=== PATIENT | female | born 1990 | race Caucasian/White ===

== ENCOUNTER 2021-10-09 17:34 | Emergency (ER) | payer MEDICAID, SELFPAY ==
[2021-10-09 17:58] VITALS: BP 133/79; PULSE 77; RESP 17; TEMP 37; O2SAT 98; BMI 32.7
--- NOTE | 2021-10-09 18:22 | ED.FEMALEGU ---
HPI - Female Genitourinary General Chief complaint: Urogenital-Female Stated complaint: kidney pain Time Seen by Provider: 10/09/21 18:22 Source: patient Mode of arrival: ambulatory Limitations: no limitations History of Present Illness HPI Narrative: 31-year-old female who presents emergency department for evaluation of bilateral flank pain, dysuria and urgency. The patient states she has had the symptoms for approximately 1 week. She points to both flank areas when asked to localize her pain. She states the pain is a constant, dull ache is if someone punched her in the kidneys. She states that the pain is 6/10 at its worst. She does have a burning sensation when she urinates. She states that she urinates then feels that she has to urinate again. She states that she is only urinating small amounts. She denied fever, chills, chest pain, shortness of breath. She states she had some nausea and with intermittent vomiting. The patient states she gets frequent urinary tract infections. She states that she had a urinary tract infection approximately 1 month prior and was on 2 separate antibiotics. She believes that the last antibiotic that she received was Keflex. She states that she is sexually active. She last had intercourse yesterday and she states that it was painful. She has not noticed any vaginal discharge. Related Data Previous Rx's Medication Instructions Recorded doxycycline hyclate 100 mg tablet 100 mg PO Q12H 14 Days #28 tab 10/09/21 metronidazole 500 mg tablet 500 mg PO BID 14 Days #28 tab 10/09/21 Allergies Allergy/AdvReac Type Severity Reaction Status Date / Time Sulfa (Sulfonamide Allergy Hives Verified 10/09/21 18:04 Antibiotics) Review of Systems Review of Systems: Yes all other systems are reviewed and are negative FOR[facility] LAT[facility] Past Medical History FOR[facility], [facility] Narrative: Past medical history: None. Past surgical history: Cholecystectomy, in 2009. Social history: She smokes 1/2 pack of cigarettes per day times 20 years. She occasionally drinks alcohol. She denies drug use. Medical History (Updated 10/09/21 @ 20:42 by Benigno Combs MD) No known health problems Social History Social History Advance Directives: No Advance Directives Information Provided: No Patient : No Physical Exam Vital Signs: Vital Signs: Last Vital Signs Temp 98.6 F 10/09/21 17:58 Pulse 77 10/09/21 17:58 Resp 17 10/09/21 17:58 BP 133/79 10/09/21 17:58 Pulse Ox 98 10/09/21 17:58 BMI result Body Mass Index 32.7 Const: General: cooperative and no acute distress Orientation/consciousness: oriented to person and oriented to place Limitations: no limitations HEENT: Head: Yes normal to inspection, Yes normocephalic and Yes atraumatic Ears: external ears normal General nose exam: Normal external nose present Face and sinus: Yes normal facial exam Mouth: Normal oral and palatal mucosa present Throat: Yes posterior oropharynx normal Eyes: General: appearance normal, both eyes and all related structures Pupils: Equal, round and reactive pupils present Neck: Neck: Yes normal visual inspection, Yes no lymphadenopathy, Yes trachea midline and Yes supple Chest: Chest palpation & inspection: normal inspection of the chest and normal palpation of entire chest wall Resp: Effort & Inspection: normal respiratory effort and able to speak in complete sentences Auscultation: clear to auscultation bilaterally Cardio: Rate: regular rate Rhythm: regular rhythm Heart sounds: S1 normal heart sound present, S2 normal heart sound present and no murmurs GI: Inspection: Yes normal to inspection Palpation (GI): Soft to palpation, Tenderness to palpation present (GI) suprapubicly (Moderate) and no guarding Auscultation: normal bowel sounds : General: Yes CVA tenderness bilateral ([id number]) Back/Spine/Pelvis: Back: CVA tenderness Skin: General skin exam: no rashes or lesions noted Neuro: General: oriented to person and oriented to place Cranial nerves: Yes CN's II-XII intact bilaterally and Yes Equal, round and reactive pupils present Cognition (Neuro): normal cognition Motor exam (neuro): 5/5 motor strength present throughout Extrem: General: Yes normal to inspection Psych: Appearance: grossly normal Speech and movement: Normal speech and movement present Affect: normal affect Attitude: cooperative Thought process: Normal thought process present Thought content: Normal thought content present Course Course Course Narrative: 31-year-old female who presents emergency department for evaluation of bilateral flank pain x1 week, dysuria and urgency times several days. The patient is sexually active and last had intercourse 1 day prior. She denies any vaginal discharge. Vital signs were normal. The patient had moderate suprapubic tenderness and mild to moderate bilateral CVA tenderness. Urinalysis, urine test and urine GC chlamydia have been ordered. 2037: Urine test was negative. Urinalysis revealed 1+ protein, 2+ blood, positive nitrates. Urinalysis revealed 5-9 RBCs, 0 WBCs 1 +bacteria. Given these results I do not think patient has your tract infection. I discussed cervicitis and PID with the patient, at this time, patient does not want a pelvic exam. I did discuss empiric treatment and the patient agreed. The patient was given ceftriaxone with lidocaine 500 mg IM. She was given a prescription for doxycycline 100 mg twice a day for 14 days and metronidazole 500 mg twice a day for 10 days. She was given printed and verbal instructions and discharged home. MDM - Female Genitourinary Lab Data Labs: Lab Results 10/09/21 10/09/21 Range/Units 19:55 19:55 Urine Color YELLOW Urine Appearance CLEAR Urine pH 6.5 (5.0-8.0) Ur Specific [place] 1.015 (1.005-1.025) Urine Protein 1+ H (NEG-TRACE) MG/DL Urine Glucose (UA) NEG (NEG) MG/DL Urine Ketones NEG (NEG) MG/DL Urine Blood 2+ H (NEG) Urine Nitrite POS H (NEG) Ur Leukocyte Esterase NEG (NEG) Urine RBC 5-9 H (0) /HPF Urine WBC 0 (0-4) /HPF Ur Squamous Epith Cells 1+ /LPF Urine Bacteria 1+ /LPF Urine Test NEGATIVE (NEGATIVE) Discharge Plan Discharge Clinical Impression: Acute pelvic inflammatory disease Patient Disposition: Home, Self-Care Additional Instructions: Pelvic inflammatory disease instructions: Your presentation is concerning for possible pelvic inflammatory disease (PID). Approximately 30% of the time, pelvic inflammatory disease is caused by sexually transmitted diseases such as Trichomonas, gonorrhea or chlamydia. Approximately 70% of the time, pelvic inflammatory disease is caused by abnormal bacteria (anaerobic bacteria) in your vagina that can cause an infection Medications You received ceftriaxone 500 mg intramuscularly here in the emergency department Take doxycycline 100 mg, 1 pill twice a day for 14 days. Take metronidazole 500 mg, 1 pill twice a day for 14 days. These 3 antibiotics treat sexually transmitted diseases such as gonorrhea, chlamydia and Trichomonas as well as anaerobic bacteria that can cause pelvic inflammatory disease. Take ibuprofen 200 mg pills, 3 pills every 6 hours as needed for pain. Take Tylenol (acetaminophen) 500 mg pills, 2 pills every 4 to 6 hours as needed for pain. Follow-Up Follow-up with your gynecology in 10-14 days. Pending laboratory tests: The doctor that follows up will need to review the following results with you: Gonorrhea and chlamydia (urine test) You can also check these results on the patient portal. If your gonorrhea or chlamydia tests are positive then your sexual partners will need to be treated. If these tests are positive then you should also be tested as an outpatient for syphilis and HIV disease, these are not tests that we do here in the emergency department. Return precautions: Please return to the emergency department if your symptoms get worse if your pain does not go away in 48 hours or if you develop any symptoms that are concerning to you. Prescriptions: New metronidazole 500 mg tablet 500 mg PO BID 14 Days Qty: 28 0RF doxycycline hyclate 100 mg tablet 100 mg PO Q12H 14 Days Qty: 28 0RF
[2021-10-09 20:02] LABS: Appearance Urine CLEAR; Color Urine YELLOW; Glucose Urine UA NEG (NEG); Leukocyte Esterase Urine NEG (NEG); Nitrite Urine POS (NEG); PH 6.5 (5.0-8.0); Specific Gravity - Urine 1.015 (1.005-1.025); UACC Culture Trigger YES; Urine Blood 2+ (NEG); Urine Ketones NEG (NEG); Urine Protein 1+ MG/DL (NEG-TRACE)
[2021-10-09 20:04] LABS: UPreg QC Valid YES; Urine Pregnancy NEGATIVE (NEGATIVE)
[2021-10-09 20:11] LABS: Bacteria Urine 1+ /LPF; Squamous Epithelial Cell Urine 1+ /LPF; WBC Urine 0 /HPF (0-4)
[2021-10-09] MEDS: cefTRIAXone sodium 500 MG VIAL IM (21:04)
[2021-10-10 06:58] LABS: CT PCR NOT DETECTED (Not Detect.); NG PCR NOT DETECTED (Not Detect.)
== END 2021-10-09 21:11 | disposition home or self-care (01) ==
PROVIDERS: Emergency Provider Emergency Medicine Emergency Medical Services; PCP Family Medicine
DX: N73.9 Female pelvic inflammatory disease, unspecified (principal); R30.0 Dysuria; R39.15 Urgency of urination; Z79.899 Other long term (current) drug therapy
CPT/HCPCS: 81001; 81003; 81025; 87086; 87088; 87186; 87491; 87591; 96372; 99283; 99284; J0696

== ENCOUNTER 2023-01-22 08:39 | Emergency (ER) | payer MEDICAID, SELFPAY ==
--- NOTE | ~2023-01-22 | MR_ITS ---
EXAMINATION: MR CERVICAL SPINE WITHOUT AND WITH CONTRAST CLINICAL INFORMATION: Neck pain and fever. History of intravenous drug abuse. COMPARISON: Cervical spine CT scan 01/22/2023. TECHNIQUE: Multiplanar MR imaging of the cervical spine was performed without contrast. The patient was unable to tolerate the examination and it was terminated prematurely. FINDINGS: The patient was unable to tolerate the examination and it was terminated prematurely. Only a sagittal T1 and T2 sequences were obtained. The T1 sequence is heavily degraded by patient motion and is therefore nondiagnostic. Alignment is grossly maintained in the sagittal dimension. Vertebral heights are preserved. Intervertebral disc height and signal intensity is maintained at all levels. Grossly no spinal canal compromise. No cord compression or abnormal intramedullary signal changes. The cervicomedullary junction is normal. Limited visualization of the posterior fossa reveals no abnormal finding. MR/MR cervical spine wo/w con IMPRESSION: Limited incomplete examination. Grossly no identifiable epidural fluid collection. No spinal canal compromise or cord compression. No abnormal intramedullary signal changes.
--- NOTE | ~2023-01-22 | CT_ITS ---
EXAMINATION: CT HEAD WITHOUT CONTRAST CLINICAL INFORMATION: Fever and headache, history of IVDA. COMPARISON: None available. TECHNIQUE: Contiguous axial imaging was performed from the skull base to vertex without intravenous administration of contrast. Coronal and sagittal reformatted images were obtained. This CT examination was performed using dose optimization techniques as appropriate, variously including the following: *Automated exposure control *Adjustment of mA and/or kV according to patient size (this includes techniques or standardized protocols for targeted exams where dose is matched to indication/reason for exam; i.e. extremities or head) *Use of iterative reconstruction technique DLP: 706 mGy-cm FINDINGS: The cortical sulci are normal. The lateral ventricles are symmetrical. The third and fourth ventricles are in their normal midline position. The basilar and prepontine cisterns are unremarkable. There is no acute intra or extracerebral abnormality. There is no mass effect or midline shift. Sections through the bony calvarium are unremarkable. The paranasal sinuses are clear. The bony orbits and orbital contents are unremarkable. CT/CT head/brain wo IV con IMPRESSION: No acute intracranial pathology.
--- NOTE | ~2023-01-22 | CT_ITS ---
EXAMINATION: CT CERVICAL SPINE WITHOUT CONTRAST CLINICAL INFORMATION: Neck pain. COMPARISON: None available. TECHNIQUE: Multiple axial images of the cervical spine were obtained without the administration of intravenous contrast. Coronal and sagittal reformatted images were obtained. This CT examination was performed using dose optimization techniques as appropriate, variously including the following: *Automated exposure control *Adjustment of mA and/or kV according to patient size (this includes techniques or standardized protocols for targeted exams where dose is matched to indication/reason for exam; i.e. extremities or head) *Use of iterative reconstruction technique DLP: 393.90 mGy-cm FINDINGS: There is straightening of the normal cervical lordosis with normal spinal alignment. The vertebral bodies are intact. Mild degenerative disc disease is seen from C6-7 to T2-T3 with disc space narrowing and marginal osteophyte formation. The odontoid process is intact. The neural foramina are patent. The facet joints are unremarkable. The spinous and transverse processes are intact. The cervical soft tissues are unremarkable. There is no lymphadenopathy. The thyroid gland is unremarkable. The lung apices show a 0.8 cm nodule posteriorly in the left apex (image 296, series 5). CT/CT cervical spine wo IV con IMPRESSION: 1. Straightening of the normal cervical lordosis may be secondary to positioning and/or muscle spasm. Note 2. Mild degenerative disc disease from C6-7 the T2-T3. 3. 0.8 cm left apical pulmonary nodules nonspecific. Given the patient's history of IVDA, further evaluation with a dedicated chest CT scan is recommended to assess the remainder of the chest.
--- NOTE | ~2023-01-22 | XR_ITS ---
EXAMINATION: XR CHEST CLINICAL INFORMATION: Fever, shortness of breath, altered mental status. COMPARISON: None available. TECHNIQUE: Frontal view of the chest was obtained. FINDINGS: No significant abnormality is noted involving the heart, lungs, mediastinum, bony thorax or soft tissues. XR/XR chest 1V IMPRESSION: No acute cardiopulmonary process.
[2023-01-22 08:49] VITALS: BP 110/79; BP 132/76; PULSE 112; PULSE 87; RESP 18; TEMP 38.2; O2SAT 100; O2SAT 99; BMI 33.4
--- NOTE | 2023-01-22 08:54 | PC.NURSE ---
Patient arrived from home reporting fevers, vomiting, and nausea, and neck pain x 8 days. Reports about 6 hours ago she started having 10/10 back pain. Reports snorting heroin around 2-3am. Reports regular iv heroin use. Reports poor po intake and appetite. States had diarrhea yesterday but prior to that was constipated x 5 days. Reports hallucinations, unable to turn neck to the sides without pain. temp 100. 3 provider aware.
[2023-01-22] MEDS: Acetaminophen 325 MG TABLET 975 MG PO (09:10)
--- NOTE | 2023-01-22 10:08 | ED.GENADULT ---
HPI - General Adult General Chief complaint: General Medical Stated complaint: Fever (103) x 8 days, neck/back pain per EMS Time Seen by Provider: 01/22/23 09:53 Source: patient and EMS Mode of arrival: EMS Limitations: other (Poor historian) History of Present Illness HPI narrative: 33-year-old female history of pelvic inflammatory disease, current IV drug abuser last used a few hours ago presenting to the emergency department complaints of 8 days of severe headache, neck pain and severe midline lower back pain she tells me she has been febrile for the past 3 days T-max a 103.0 degrees. She reports pain is 10/10. She reports her spine hurts a lot. She also reports her head hurts and her neck hurts, worse with movement and better at rest. Patient also reports that this morning she feels like she was hallucinating this is when her fever was very high. Patient denies alcohol abuse. Denies tobacco. Patient reports fevers, chills, fatigue, malaise, myalgias. Denies chest pain, shortness of breath, nausea, vomiting, abdominal pain. Related Data Previous Rx's Medication Instructions Recorded doxycycline hyclate 100 mg tablet 100 mg PO Q12H 14 days #28 tabs 10/09/21 metronidazole 500 mg tablet 500 mg PO BID 14 days #28 tabs 10/09/21 nitrofurantoin 100 mg PO BID 7 days #14 caps 10/15/21 monohydrate/macrocrystals 100 mg capsule (Macrobid) cephalexin 500 mg tablet 500 mg PO Q6H 10 days #40 tabs 01/22/23 doxycycline hyclate 100 mg capsule 100 mg PO BID 10 days #20 caps 01/22/23 Allergies Allergy/AdvReac Type Severity Reaction Status Date / Time Sulfa (Sulfonamide Allergy Hives Verified 10/09/21 18:04 Antibiotics) Review of Systems Review of Systems: Constitutional : No Weight loss, + Fever, + Chills, + Fatigue, + Malaise ENT/Mouth : No sore throat, No Rhinorrhea Eyes: No Eye Pain, No Swelling, No Redness Cardiovascular : No Chest Pain, No SOB, No Dyspnea on Exertion, No Orthopnea, No Edema, No Palpitations Respiratory : No Cough, No Sputum, No Wheezing Gastrointestinal : No Nausea, No Vomiting, No Diarrhea, No Constipation, No abdominal Pain, No Hematochezia, No Melena Genitourinary : No Dysuria, No Urinary Frequency, No Hematuria, Musculoskeletal : No joint pain, No Myalgias, No Joint Swelling, + spine pain Skin : No Skin Lesions, No rash Neuro : No Weakness, No Numbness, No Dizziness, + Headache Psych : No Anxiety/Panic, No Depression All other systems reviewed and are negative Yes all other systems are reviewed and are negative [facility] Past Medical History Attestation statement: The following information was validated with the patient. Source: old records reviewed and nursing notes reviewed Medical History No known health problems Social History Social History Alcohol intake: former Smoked in Last 30 Days: Yes Use of substances other than those prescribed or required for medical reasons: Yes Substance Use Type: Heroin Last Used Substance: Hours (ago) Advance Directives: No Advance Directives Information Provided: No Physical Exam ED Vital Signs: Vital Signs - 24 hr 01/22/23 08:49 01/22/23 10:21 01/22/23 10:55 Temperature 100.8 F H 98.6 F 98.8 F Pulse Rate 87 101 H Respiratory Rate 18 20 Blood Pressure 110/79 107/71 Pulse Oximetry 100 100 Oxygen Delivery Method Room Air Room Air 01/22/23 13:35 01/22/23 13:47 Temperature 98.6 F Pulse Rate 70 Respiratory Rate 18 Blood Pressure 103/54 L Pulse Oximetry Oxygen Delivery Method BMI result Body Mass Index 33.4 vss Appearance: Alert.? Oriented X3.? No acute distress.? Patient warm to the touch. Head: Normocephalic, atraumatic, no step-offs or deformities Eyes: Pupils equal, round and reactive to light.? ENT: Pharynx normal.? Neck: Normal inspection.?+ positive Kernig and Brudzinski. Midline cervical spine tenderness C1-C7 throughout. With associated paraspinous muscle spasms. CVS: Rapid rate normal rhythm likely sinus tachycardia..? Pulses normal.? Respiratory: No respiratory distress.? Breath sounds normal.? Abdomen: Soft and nontender.? Skin: Skin warm and dry.? Normal skin color.? Normal skin turgor.? Extremities: No lower extremity edema.? No calf ttp. 5/5 strength to bilateral upper and lower extremities Back: + midline tenderness to lower lumbar and sacral region, full range of motion, no CVA tenderness bilaterally Neuro: Oriented X 3.? No motor deficit.? No sensory deficit. CN 2-12 intact Course Reevaluation(s) Reevaluation #1: Patient is febrile upon review of vital signs, difficult time obtaining labs an IV secondary to patient being to have stick despite this I am calling a sepsis alert at this time as infection is suspected. Blood cultures, lactic acid have been ordered and are pending, 30 cc/kilos bolus. An I ordered empiric vancomycin and Zosyn. Time: 10:10 Reevaluation #2: Patient's CBC with no leukocytosis, normocytic anemia is noted, no previous labs to compare with, patient noted to have leukopenia platelet count of 89, unclear if this is an patient's history patient unclear. Patient does have a neutrophil predominance 84.3. ESR noted to be markedly elevated 51. Sodium 134, potassium 2.7, IV potassium ordered, repeat CMP to be done. Patient is also noted to have a Mag of 1.5 will also give magnesium. Patient's CRP noted to be 21.78. Received a call from Radiology stating that they could only do 1 scan, to prioritize, I believe cervical MRI would be most valuable due to point tenderness being predominantly in the cervical spine. I explained that there is no time to do thoracic, lumbar MRI although my attending fell as though this would also be warranted. My attending aware of this. When patient was taken down to MRI, not cooperative with the exam states she can not Breeze, does not want the exam any more. Also not cooperative with lumbar puncture will give pain medicine and reassess. Time: 13:06 Reevaluation #3: Patient continues to adamantly refuse MRI, refusing lumbar puncture does not want be admitted states she wants antibiotics for home and she is going to leave and she just wants to sleep at home and feel better. I explained to patient this is not how this works I explained to her she can be hospitalized for up to a few days if not weeks due to her potential meningitis, continues to refuse further intervention including lumbar puncture, imaging, hospital admission, further monitoring and testing as needed. I explained to patient meningitis can be deadly she verbalizes understanding and states she does not care. Patient would like to go home at this time. Adamant that she would not stay. Multiple witnesses at the bedside include Cyndi STEELE and Mary VARGAS. Patient is not up for negotiation she tells me and she just needs to go home. At this time patient will be leaving against medical advice, I did go over risks of leaving and patient tells me she does not care risks include worsening condition, infection, . Working diagnosis of meningitis versus aseptic meningitis and possible epidural abscess patient aware of this and states she does not care and would like to leave. At time patient left alert and oriented x4, able to make her own decisions. Time: 13:53 Medications Administered Discontinued Medications Generic Name Dose Route Start Last Admin Trade Name Thomas PRN Reason Stop Dose Admin Acetaminophen 975 mg 01/22/23 08:55 01/22/23 09:10 Acetaminophen 325 Mg Tablet PO 01/22/23 08:56 975 mg ONCE ONE Administration Haloperidol 5 mg 01/22/23 10:14 01/22/23 11:10 Haloperidol 5 Mg Tablet PO 01/22/23 10:15 5 mg ONCE ONE Administration Hydromorphone HCl 1 mg 01/22/23 13:02 01/22/23 13:24 Hydromorphone Hcl 1 Mg/Ml Syringe IVPUSH 01/22/23 13:03 1 mg ONCE ONE Administration Protocol Vancomycin HCl 2,000 mg in 500 mls @ 250 mls/hr 01/22/23 10:07 01/22/23 11:11 Vancomycin/Ns IV 01/22/23 12:06 250 mls/hr ONCE ONE Administration Piperacillin Sod/Tazobactam 50 mls @ 100 mls/hr 01/22/23 10:07 01/22/23 11:51 Sod 3.375 gm/ Sodium Chloride IV 01/22/23 10:36 Infused ONCE ONE Infusion Sodium Chloride 2,565 mls @ 2,565 mls/hr 01/22/23 10:10 01/22/23 10:23 Ns 30 ml/kg infuse over 1 hr (2565 ml) 01/22/23 11:09 2,565 mls/hr IV Administration .Q1H STA Potassium Chloride 10 meq in 100 mls @ 100 mls/hr 01/22/23 10:45 01/22/23 13:16 Potassium Chloride/H20 IV 01/22/23 12:44 100 mls/hr Q1H DARIUSZ Administration Ketorolac Tromethamine 30 mg 01/22/23 10:08 01/22/23 10:14 Ketorolac Tromethamine 15 Mg/Ml Vial IVPUSH 01/22/23 10:09 30 mg ONCE ONE Administration Morphine Sulfate 4 mg 01/22/23 10:08 01/22/23 10:14 Morphine Sulfate 4 Mg/Ml Cartridge IVPUSH 01/22/23 10:09 4 mg ONCE ONE Administration Protocol Medical Decision Making Medical Decision Making [facility] Narrative: 0845 33-year-old female presents with severe neck pain, lower back pain, in the midline, headache and high fevers for the past 3 days however symptoms present for the past 8 days. Patient history of IV drug abuse Physical exam significant for neck with normal inspection.?+ positive Kernig and Brudzinski. Midline cervical spine tenderness C1-C7 throughout. With associated paraspinous muscle spasms. Patient also noted to have midline tenderness to lower lumbar and sacral region. No overlying skin changes. Regular rate normal rhythm likely sinus tachycardia. Lungs clear I do have some suspicion for encephalitis versus meningitis versus epidural abscess. Unlikely cauda equina. Will rule out electrolyte abnormalities. Other differentials include viral illness. Unlikely that this is intracranial hemorrhage, stroke, posterior stroke, pseudotumor cerebri. Plan at this time labs, imaging, urine, CT of head. Will also order an MRI of cervical spine, thoracic and lumbar spine this is discussed with my attending who agrees base of history, physical exam and patient presentation. Patient a very difficult stick, unable to get labs or an IV per nursing staff. Will continue to try. Differential Diagnosis Differential Diagnoses: The differential diagnosis associated with the presentation includes I do have some suspicion for encephalitis versus meningitis versus epidural abscess. Unlikely cauda equina. Will rule out electrolyte abnormalities. Other differentials include viral illness. Unlikely that this is intracranial hemorrhage, stroke, posterior stroke, pseudotumor cerebri. Admission/Observation Consideration of admission/observation: Escalation of care including admission/observation considered Likely ICU admission Consult Healthcare Provider Management of the patient was discussed with: [employer] Lab Data [facility] Lab Attestation statement: I reviewed the patient's lab results. 01/22/23 10:02 01/22/23 10:02 Labs: Lab Results 01/22/23 01/22/23 01/22/23 Range/Units 10:02 10:02 10:02 WBC 8.8 (4.8-10.8) X10*3/uL RBC 4.00 L (4.20-5.50) X10*6/uL Hgb 11.1 L (12.0-16.0) g/dl Hct 32.0 L (37.0-47.0) % MCV 80.0 (80.0-98.0) fL MCH 27.8 (27.0-33.0) pg MCHC 34.7 (31.0-35.0) g/dl RDW 14.2 (11.0-16.0) % Plt Count 89 L (160-400) X10*3/uL MPV 10.9 (9.4-12.3) fL Immature Gran % (Auto) 1.0 H (0.0-0.4) % Neut % (Auto) 84.3 H (45-73) % Lymph % (Auto) 8.7 L (20-40) % Holmes % (Auto) 5.6 (2-11) % Eos % (Auto) 0.1 (0-4) % Baso % (Auto) 0.3 (0-2) % Lymph # (Auto) 0.8 L (1.2-4.9) X10*3/uL Holmes # (Auto) 0.5 (0.1-1.2) X10*3/uL Eos # (Auto) 0.0 (0.0-0.4) X10*3/uL Baso # (Auto) 0.0 (0.0-0.2) X10*3/uL Abs Immat Gran (auto) 0.09 H (0.00-0.03) X10*3/uL Absolute Neuts (auto) 7.4 (2.0-8.3) x10*3/uL Absolute Nucleated RBC 0.000 (0.0-0.012) X10*3/uL Nucleated RBC % (auto) 0.0 (0.0-0.2) /100WBC ESR (0-20) MM/HR Sodium 134 L (135-145) mmol/L Potassium 2.7 L (3.3-5.1) mmol/L Chloride 99 (96-108) mmol/L Carbon Dioxide 24 (22-29) mmol/L Anion Gap 14 (12-20) BUN 7 L (9-16) mg/dL Creatinine 0.71 (0.5-1.4) mg/dL Estim Creat Clear Calc 117.8 Estimated GFR > 60 Random Glucose 145 H (60-115) mg/dL Lactic Acid 2.0 (0.5-2.0) mmol/L Calcium 9.7 (8.4-10.2) mg/dL Magnesium 1.5 L (1.6-2.6) mg/dL Total Bilirubin 0.9 (0.0-1.0) mg/dL AST 19 (5-31) U/L ALT 12 (0-31) U/L Alkaline Phosphatase 118 H (39-117) U/L Total Creatine Kinase 13 L (26-140) U/L C-Reactive Protein 21.78 H (< or = 0.50) mg/dL Total Protein 6.5 (6.5-8.0) g/dL Albumin 2.8 L (3.5-5.0) g/dL Urine Color Urine Appearance Urine pH (5.0-9.0) Ur Specific [place] (1.005-1.025) Urine Protein (Neg-Trace) mg/dL Urine Glucose (UA) (Negative) mg/dL Urine Ketones (Negative) mg/dL Urine Blood (Negative) Urine Nitrite (Negative) Ur Leukocyte Esterase (Negative) Urine RBC (0-2) /HPF Urine WBC (0-5) /HPF Ur Squamous Epith Cells (0-2) /HPF Urine Bacteria (None Seen) Hyaline Casts (0-2) /LPF COVID-19 (DARÍO) (Negative) COVID-19 Clin Com 01/22/23 01/22/23 01/22/23 Range/Units 10:02 10:28 10:28 WBC (4.8-10.8) X10*3/uL RBC (4.20-5.50) X10*6/uL Hgb (12.0-16.0) g/dl Hct (37.0-47.0) % MCV (80.0-98.0) fL MCH (27.0-33.0) pg MCHC (31.0-35.0) g/dl RDW (11.0-16.0) % Plt Count (160-400) X10*3/uL MPV (9.4-12.3) fL Immature Gran % (Auto) (0.0-0.4) % Neut % (Auto) (45-73) % Lymph % (Auto) (20-40) % Holmes % (Auto) (2-11) % Eos % (Auto) (0-4) % Baso % (Auto) (0-2) % Lymph # (Auto) (1.2-4.9) X10*3/uL Holmes # (Auto) (0.1-1.2) X10*3/uL Eos # (Auto) (0.0-0.4) X10*3/uL Baso # (Auto) (0.0-0.2) X10*3/uL Abs Immat Gran (auto) (0.00-0.03) X10*3/uL Absolute Neuts (auto) (2.0-8.3) x10*3/uL Absolute Nucleated RBC (0.0-0.012) X10*3/uL Nucleated RBC % (auto) (0.0-0.2) /100WBC ESR 51 H (0-20) MM/HR Sodium (135-145) mmol/L Potassium (3.3-5.1) mmol/L Chloride (96-108) mmol/L Carbon Dioxide (22-29) mmol/L Anion Gap (12-20) BUN (9-16) mg/dL Creatinine (0.5-1.4) mg/dL Estim Creat Clear Calc Estimated GFR Random Glucose (60-115) mg/dL Lactic Acid (0.5-2.0) mmol/L Calcium (8.4-10.2) mg/dL Magnesium (1.6-2.6) mg/dL Total Bilirubin (0.0-1.0) mg/dL AST (5-31) U/L ALT (0-31) U/L Alkaline Phosphatase (39-117) U/L Total Creatine Kinase (26-140) U/L C-Reactive Protein (< or = 0.50) mg/dL Total Protein (6.5-8.0) g/dL Albumin (3.5-5.0) g/dL Urine Color Yellow Urine Appearance Clear Urine pH 6.0 (5.0-9.0) Ur Specific [place] <= 1.005 (1.005-1.025) Urine Protein Negative (Neg-Trace) mg/dL Urine Glucose (UA) Negative (Negative) mg/dL Urine Ketones Negative (Negative) mg/dL Urine Blood Moderate (2+) H (Negative) Urine Nitrite Negative (Negative) Ur Leukocyte Esterase Trace H (Negative) Urine RBC 0-2 (0-2) /HPF Urine WBC 0-5 (0-5) /HPF Ur Squamous Epith Cells 11-20 (0-2) /HPF Urine Bacteria 3+ (None Seen) Hyaline Casts 0-2 (0-2) /LPF COVID-19 (DARÍO) Negative (Negative) COVID-19 Clin Com See Note Independent Interpretation I performed an independent interpretation of an: EKG, Plain X-Ray and CT Scan Radiology Impression Discussion of test interpretation with radiology: I have reviewed the radiologist's reading. Chronic Conditions Patient?s care impacted by: Other (IV drug abuse) Core Measures AMI core measures followed: Yes Measure exclusions: not indicated Critical Care Time Critical Care Time Critical Care Time: Yes Total Critical Care Time: 90 Attestation: I attest to this time spent taking care of the patient, obtaining history, physical, reviewing labs, imaging, speaking to my attending, speaking to specialist. Discharge Plan Discharge Clinical Impression: UTI (urinary tract infection), Fever, Headache, Neck pain, Left against medical advice Patient Disposition: Left Against Medical Advice Instructions: Urinary Tract Infection in Women (ED), Fever in Adults (ED), Acute Headache (ED), Against Medical Advice (ED), Acute Neck Pain (ED) Additional Instructions: Take your medications as prescribed. If you were prescribed antibiotics today, it is important that you take your medication to their entirety, do not skip any doses, do not finish them early. Follow-up with your primary care provider this week. Return to the emergency department with new or worsening symptoms. Such as fevers, chills, chest pain, shortness of breath, nausea, vomiting, dizziness, headache, vision changes, lethargy In case of emergency call 911 You sign no against medical advice this means you could when you leave this facility. Return if you change your mind Prescriptions: New doxycycline hyclate 100 mg capsule 100 mg PO BID 10 Days Qty: 20 0RF cephalexin 500 mg tablet 500 mg PO Q6H 10 Days Qty: 40 0RF No Action metronidazole 500 mg tablet 500 mg PO BID 14 Days Qty: 28 0RF doxycycline hyclate 100 mg tablet 100 mg PO Q12H 14 Days Qty: 28 0RF nitrofurantoin monohyd/m-cryst [Macrobid] 100 mg capsule 100 mg PO BID 7 Days Qty: 14 0RF Rx Instructions: must administer with a meal/food Referrals: Sharif Rascon MD [Primary Care Provider] - 2 days Stand Alone Forms: Against Medical Advice
[2023-01-22 10:12] LABS: MANUAL DIFF FLAG NO
[2023-01-22 10:14] LABS: Basophils Percent Auto 0.3 % (0-2); Eosinophils Percent Auto 0.1 % (0-4); Hemoglobin 11.1 g/dl (12.0-16.0); Imm Gran Abs Auto 0.09 X10*3/uL (0.00-0.03); Lymphocytes Absolute Auto 0.8 X10*3/uL (1.2-4.9); Lymphocytes Percent Auto 8.7 % (20-40); Mean Corpuscular HGB Conc 34.7 g/dl (31.0-35.0); Mean Corpuscular Hemoglobin 27.8 pg (27.0-33.0); Monocytes Absolute Auto 0.5 X10*3/uL (0.1-1.2); Monocytes Percent Auto 5.6 % (2-11); Neutrophils Absolute Auto 7.4 x10*3/uL (2.0-8.3); Neutrophils Percent Auto 84.3 % (45-73); Red Cell Distribution Width 14.2 % (11.0-16.0); White Blood Count 8.8 X10*3/uL (4.8-10.8)
[2023-01-22] MEDS: Ketorolac Tromethamine 15 MG/ML VIAL 30 MG IVPUSH (10:14)
[2023-01-22] MEDS: Morphine Sulfate 4 MG/ML CARTRIDGE IVPUSH (10:14)
[2023-01-22 10:21] VITALS: TEMP 37
[2023-01-22] MEDS: Piperacillin Sodium/Tazobactam 3.375 GM in 0.9 % Sodium Chloride 50 ML IV (10:21)
[2023-01-22 10:29] LABS: Alanine Aminotransferase 12 U/L (0-31); Albumin Level 2.8 g/dL (3.5-5.0); Alkaline Phosphatase 118 U/L (39-117); Anion Gap 14 (12-20); Aspartate Amino Transferase 19 U/L (5-31); Bilirubin Total 0.9 mg/dL (0.0-1.0); Blood Urea Nitrogen 7 mg/dL (9-16); C Reactive Protein 21.78 mg/dL (< or = 0.50); Calcium 9.7 mg/dL (8.4-10.2); Carbon Dioxide 24 mmol/L (22-29); Chloride 99 mmol/L (96-108); Creatinine Clr Calc Pharmacy 117.8; Estimated Glomerular Filt Rate > 60; Glucose Random 145 mg/dL (60-115); Magnesium 1.5 mg/dL (1.6-2.6); Potassium 2.7 mmol/L (3.3-5.1); Sodium 134 mmol/L (135-145); Total Protein 6.5 g/dL (6.5-8.0)
--- NOTE | 2023-01-22 10:32 | ECG_ITS ---
Test Reason : hypok Blood Pressure : / mmHG Vent. Rate : 098 BPM Atrial Rate : 098 BPM P-R Int : 152 ms QRS Dur : 106 ms QT Int : 414 ms P-R-T Axes : 069 067 041 degrees QTc Int : 528 ms Normal sinus rhythm Nonspecific ST and T wave abnormality Prolonged QT Abnormal ECG No previous ECGs available Referred By: Davon Damian Electronically Signed By:KIP NIETO
[2023-01-22 10:36] LABS: Appearance Urine Clear; Color Urine Yellow; Glucose Urine UA Negative (Negative); Leukocyte Esterase Urine Trace (Negative); Nitrite Urine Negative (Negative); Specific Gravity - Urine <= 1.005 (1.005-1.025); UMIC TRIGGER UACC YES; Urine Blood Moderate (2+) (Negative); Urine Ketones Negative (Negative); Urine Protein Negative (Neg-Trace)
[2023-01-22 10:49] LABS: COVID-19 Test Negative (Negative); IDNOW Serial# 55D5AD1C
--- NOTE | 2023-01-22 10:50 | PC.NURSE ---
x 3 nurses attempted to start iv without success. IV started in top of left foot per provider. IV fluids running per order, patient accidentally removed IV in top.
[2023-01-22 10:53] LABS: Erythrocyte Sedimentation Rate 51 MM/HR (0-20); Mean Platelet Volume 10.9 fL (9.4-12.3); Platelet Count 89 X10*3/uL (160-400)
[2023-01-22 10:55] VITALS: BP 107/71; PULSE 101; RESP 20; TEMP 37.1; O2SAT 100
[2023-01-22 10:58] LABS: Bacteria Urine 3+ (None Seen); Hyaline Casts Urine 0-2 /LPF (0-2); RBC Urine 0-2 /HPF (0-2); WBC Urine 0-5 /HPF (0-5)
[2023-01-22] MEDS: HaloperidoL 5 MG TABLET PO (11:10)
[2023-01-22] MEDS: Potassium Chloride/H20 10 MEQ/100 ML PIGGYBACK 100 MEQ IV ×2 (11:11→13:16)
[2023-01-22] MEDS: vancomycin/NS 2,000 MG/500 ML PLAST..BAG 250 MG IV (11:11)
--- NOTE | 2023-01-22 11:26 | PC.NURSE ---
IV re-started in left forearm via ultrasound guidance. IV fluids and abt resumed per order
--- NOTE | 2023-01-22 11:54 | PC.NURSE ---
Patient off to mri at this time. 1 bag of fluids completed, 600mls output of clear yellow urine
[2023-01-22] MEDS: HYDROmorphone HCl 1 MG/ML SYRINGE IVPUSH (13:24)
--- NOTE | 2023-01-22 13:33 | PC.NURSE ---
Patient reporting that she does a lot of fentanyl everyday and feels as if she is withdrawing. Provider notified, iv pain med given per order. Patient assisted to use bedpain. Bed linen and hospital attire change per patients request. IV fluids, abt, and K running per order.
[2023-01-22 13:35] VITALS: TEMP 37
[2023-01-22 13:47] VITALS: BP 103/54; PULSE 70; RESP 18
--- NOTE | 2023-01-22 13:56 | PC.NURSE ---
Patient rang call pradhan stating IV was burning. Explained that K does cause can cause a burning sensation. IV assessed with no s/s of infiltration noted. Provider into room who also explained that K can burn upon infusion. Patient stating to stop K. Patient stating to provider that she wants to go home. Provider reviewed risks up to and including if patient leaves ama. Patient states she is aware and still wants to leave. Patient stating she also does not want MG run that she will stay until vanco is complete but then she is leaving.
--- NOTE | 2023-01-22 14:06 | PHA.MEDREC ---
Pharmacy Consult ? Medication Reconciliation Pharmacy has completed the medication reconciliation.
--- NOTE | 2023-01-22 14:20 | PC.NURSE ---
Discharge instructions reviewed wth patient who verbalized understanding. patient educated on abt1s and when to return to er.
--- NOTE | 2023-01-22 21:40 | ED_ITS ---
HPI - General Adult General Chief complaint: General Medical Stated complaint: Fever (103) x 8 days, neck/back pain per EMS Time Seen by Provider: 01/22/23 09:53 Source: patient and EMS Mode of arrival: EMS Limitations: other (Poor historian) Related Data Previous Rx's Medication Instructions Recorded cephalexin 500 mg tablet 500 mg PO Q6H 10 days #40 tabs 01/22/23 doxycycline hyclate 100 mg capsule 100 mg PO BID 10 days #20 caps 01/22/23 Allergies Allergy/AdvReac Type Severity Reaction Status Date / Time Sulfa (Sulfonamide Allergy Hives Verified 10/09/21 18:04 Antibiotics) [facility] Past Medical History Medical History No known health problems Social History Social History Alcohol intake: former Smoked in Last 30 Days: Yes Use of substances other than those prescribed or required for medical reasons: Yes Substance Use Type: Heroin Last Used Substance: Hours (ago) Advance Directives: No Advance Directives Information Provided: No Physical Exam ED Vital Signs: Vital Signs - 24 hr 01/22/23 08:49 01/22/23 10:21 01/22/23 10:55 Temperature 100.8 F H 98.6 F 98.8 F Pulse Rate 87 101 H Respiratory Rate 18 20 Blood Pressure 110/79 107/71 Pulse Oximetry 100 100 Oxygen Delivery Method Room Air Room Air 01/22/23 13:35 01/22/23 13:47 Temperature 98.6 F Pulse Rate 70 Respiratory Rate 18 Blood Pressure 103/54 L Pulse Oximetry Oxygen Delivery Method BMI result Body Mass Index 33.4 Course Reevaluation(s) Reevaluation #1: Received call from the lab that the patient has positive blood cultures and 2/2 bottles. After reviewing the patient's chart and seeing that she is complaining of fever times a days and there was high concern for meningitis, I called the patient. I was able to speak with her and explained the risks of bacteremia, sepsis. She reports that she feels ?okay. ? I advised her to return to the emergency department immediately or call 911. She reports ?I will try to find a ride 1st. ? Time: 21:40 Medications Administered Discontinued Medications Generic Name Dose Route Start Last Admin Trade Name Thomas PRN Reason Stop Dose Admin Acetaminophen 975 mg 01/22/23 08:55 01/22/23 09:10 Acetaminophen 325 Mg Tablet PO 01/22/23 08:56 975 mg ONCE ONE Administration Haloperidol 5 mg 01/22/23 10:14 01/22/23 11:10 Haloperidol 5 Mg Tablet PO 01/22/23 10:15 5 mg ONCE ONE Administration Hydromorphone HCl 1 mg 01/22/23 13:02 01/22/23 13:24 Hydromorphone Hcl 1 Mg/Ml Syringe IVPUSH 01/22/23 13:03 1 mg ONCE ONE Administration Protocol Vancomycin HCl 2,000 mg in 500 mls @ 250 mls/hr 01/22/23 10:07 01/22/23 11:11 Vancomycin/Ns IV 01/22/23 12:06 250 mls/hr ONCE ONE Administration Piperacillin Sod/Tazobactam 50 mls @ 100 mls/hr 01/22/23 10:07 01/22/23 11:51 Sod 3.375 gm/ Sodium Chloride IV 01/22/23 10:36 Infused ONCE ONE Infusion Sodium Chloride 2,565 mls @ 2,565 mls/hr 01/22/23 10:10 01/22/23 10:23 Ns 30 ml/kg infuse over 1 hr (2565 ml) 01/22/23 11:09 2,565 mls/hr IV Administration .Q1H STA Potassium Chloride 10 meq in 100 mls @ 100 mls/hr 01/22/23 10:45 01/22/23 13:55 Potassium Chloride/H20 IV 01/22/23 12:44 0 mls/hr Q1H DARIUSZ Infusion Magnesium Sulfate 2 gm in 50 mls @ 25 mls/hr 01/22/23 13:04 01/22/23 13:55 Magnesium Sulfate/H2o IV 01/22/23 15:03 Not Given ONCE ONE Ketorolac Tromethamine 30 mg 01/22/23 10:08 01/22/23 10:14 Ketorolac Tromethamine 15 Mg/Ml Vial IVPUSH 01/22/23 10:09 30 mg ONCE ONE Administration Morphine Sulfate 4 mg 01/22/23 10:08 01/22/23 10:14 Morphine Sulfate 4 Mg/Ml Cartridge IVPUSH 01/22/23 10:09 4 mg ONCE ONE Administration Protocol Medical Decision Making Lab Data 01/22/23 10:02 01/22/23 10:02 Labs: Lab Results 01/22/23 01/22/23 01/22/23 Range/Units 10:02 10:02 10:02 WBC 8.8 (4.8-10.8) X10*3/uL RBC 4.00 L (4.20-5.50) X10*6/uL Hgb 11.1 L (12.0-16.0) g/dl Hct 32.0 L (37.0-47.0) % MCV 80.0 (80.0-98.0) fL MCH 27.8 (27.0-33.0) pg MCHC 34.7 (31.0-35.0) g/dl RDW 14.2 (11.0-16.0) % Plt Count 89 L (160-400) X10*3/uL MPV 10.9 (9.4-12.3) fL Immature Gran % (Auto) 1.0 H (0.0-0.4) % Neut % (Auto) 84.3 H (45-73) % Lymph % (Auto) 8.7 L (20-40) % [place] % (Auto) 5.6 (2-11) % Eos % (Auto) 0.1 (0-4) % Baso % (Auto) 0.3 (0-2) % Lymph # (Auto) 0.8 L (1.2-4.9) X10*3/uL [place] # (Auto) 0.5 (0.1-1.2) X10*3/uL Eos # (Auto) 0.0 (0.0-0.4) X10*3/uL Baso # (Auto) 0.0 (0.0-0.2) X10*3/uL Abs Immat Gran (auto) 0.09 H (0.00-0.03) X10*3/uL Absolute Neuts (auto) 7.4 (2.0-8.3) x10*3/uL Absolute Nucleated RBC 0.000 (0.0-0.012) X10*3/uL Nucleated RBC % (auto) 0.0 (0.0-0.2) /100WBC ESR (0-20) MM/HR Sodium 134 L (135-145) mmol/L Potassium 2.7 L (3.3-5.1) mmol/L Chloride 99 (96-108) mmol/L Carbon Dioxide 24 (22-29) mmol/L Anion Gap 14 (12-20) BUN 7 L (9-16) mg/dL Creatinine 0.71 (0.5-1.4) mg/dL Estim Creat Clear Calc 117.8 Estimated GFR > 60 Random Glucose 145 H (60-115) mg/dL Lactic Acid 2.0 (0.5-2.0) mmol/L Calcium 9.7 (8.4-10.2) mg/dL Magnesium 1.5 L (1.6-2.6) mg/dL Total Bilirubin 0.9 (0.0-1.0) mg/dL AST 19 (5-31) U/L ALT 12 (0-31) U/L Alkaline Phosphatase 118 H (39-117) U/L Total Creatine Kinase 13 L (26-140) U/L C-Reactive Protein 21.78 H (< or = 0.50) mg/dL Total Protein 6.5 (6.5-8.0) g/dL Albumin 2.8 L (3.5-5.0) g/dL Urine Color Urine Appearance Urine pH (5.0-9.0) Ur Specific [place] (1.005-1.025) Urine Protein (Neg-Trace) mg/dL Urine Glucose (UA) (Negative) mg/dL Urine Ketones (Negative) mg/dL Urine Blood (Negative) Urine Nitrite (Negative) Ur Leukocyte Esterase (Negative) Urine RBC (0-2) /HPF Urine WBC (0-5) /HPF Ur Squamous Epith Cells (0-2) /HPF Urine Bacteria (None Seen) Hyaline Casts (0-2) /LPF COVID-19 (DARÍO) (Negative) COVID-19 Clin Com 01/22/23 01/22/23 01/22/23 Range/Units 10:02 10:28 10:28 WBC (4.8-10.8) X10*3/uL RBC (4.20-5.50) X10*6/uL Hgb (12.0-16.0) g/dl Hct (37.0-47.0) % MCV (80.0-98.0) fL MCH (27.0-33.0) pg MCHC (31.0-35.0) g/dl RDW (11.0-16.0) % Plt Count (160-400) X10*3/uL MPV (9.4-12.3) fL Immature Gran % (Auto) (0.0-0.4) % Neut % (Auto) (45-73) % Lymph % (Auto) (20-40) % [place] % (Auto) (2-11) % Eos % (Auto) (0-4) % Baso % (Auto) (0-2) % Lymph # (Auto) (1.2-4.9) X10*3/uL [place] # (Auto) (0.1-1.2) X10*3/uL Eos # (Auto) (0.0-0.4) X10*3/uL Baso # (Auto) (0.0-0.2) X10*3/uL Abs Immat Gran (auto) (0.00-0.03) X10*3/uL Absolute Neuts (auto) (2.0-8.3) x10*3/uL Absolute Nucleated RBC (0.0-0.012) X10*3/uL Nucleated RBC % (auto) (0.0-0.2) /100WBC ESR 51 H (0-20) MM/HR Sodium (135-145) mmol/L Potassium (3.3-5.1) mmol/L Chloride (96-108) mmol/L Carbon Dioxide (22-29) mmol/L Anion Gap (12-20) BUN (9-16) mg/dL Creatinine (0.5-1.4) mg/dL Estim Creat Clear Calc Estimated GFR Random Glucose (60-115) mg/dL Lactic Acid (0.5-2.0) mmol/L Calcium (8.4-10.2) mg/dL Magnesium (1.6-2.6) mg/dL Total Bilirubin (0.0-1.0) mg/dL AST (5-31) U/L ALT (0-31) U/L Alkaline Phosphatase (39-117) U/L Total Creatine Kinase (26-140) U/L C-Reactive Protein (< or = 0.50) mg/dL Total Protein (6.5-8.0) g/dL Albumin (3.5-5.0) g/dL Urine Color Yellow Urine Appearance Clear Urine pH 6.0 (5.0-9.0) Ur Specific [place] <= 1.005 (1.005-1.025) Urine Protein Negative (Neg-Trace) mg/dL Urine Glucose (UA) Negative (Negative) mg/dL Urine Ketones Negative (Negative) mg/dL Urine Blood Moderate (2+) H (Negative) Urine Nitrite Negative (Negative) Ur Leukocyte Esterase Trace H (Negative) Urine RBC 0-2 (0-2) /HPF Urine WBC 0-5 (0-5) /HPF Ur Squamous Epith Cells 11-20 (0-2) /HPF Urine Bacteria 3+ (None Seen) Hyaline Casts 0-2 (0-2) /LPF COVID-19 (DARÍO) Negative (Negative) COVID-19 Clin Com See Note Discharge Plan Discharge Clinical Impression: UTI (urinary tract infection), Fever, Headache, Neck pain, Left against medical advice Patient Disposition: Left Against Medical Advice Instructions: Urinary Tract Infection in Women (ED), Fever in Adults (ED), Ac apache Headache (ED), Against Medical Advice (ED), Acute Neck Pain (ED) Additional Instructions: Take your medications as prescribed. If you were prescribed antibiotics today, it is important that you take your medication to their entirety, do not skip any doses, do not finish them early. Follow-up with your primary care provider this week. Return to the emergency department with new or worsening symptoms. Such as fevers, chills, chest pain, shortness of breath, nausea, vomiting, dizziness, headache, vision changes, lethargy In case of emergency call 911 You sign no against medical advice this means you could when you leave this facility. Return if you change your mind Prescriptions: New doxycycline hyclate 100 mg capsule 100 mg PO BID 10 Days Qty: 20 0RF cephalexin 500 mg tablet 500 mg PO Q6H 10 Days Qty: 40 0RF Referrals: Sharif Rascon MD [Primary Care Provider] - 2 days Stand Alone Forms: Against Medical Advice Interventions: ED Discharge Assessment Last Done: 01/22/23 14:20 Discharge Date/Time: 01/22/23 15:09
== END 2023-01-22 15:09 | disposition left against medical advice (07) ==
PROVIDERS: Physician Assistant; Emergency Provider Emergency Medicine Emergency Medical Services; PCP Family Medicine
DX: N39.0 Urinary tract infection, site not specified (principal); B95.61 Methicillin susceptible Staphylococcus aureus infection as the cause of diseases classified elsewhere; R50.9 Fever, unspecified; R51.9 Headache, unspecified; M54.2 Cervicalgia; Z20.822 Contact with and (suspected) exposure to COVID-19
CPT/HCPCS: 36415; 70450; 71045; 72125; 72156; 80053; 81001; 82550; 83605; 83735; 85025; 85652; 86140; 87040; 87077; 87186; 87205; 87635; 93005; 96365; 96366; 96367; 96375; 99285; J1170; J1885; J2270; J2543; J3370

== ENCOUNTER 2023-09-01 19:15 | Inpatient (IN) | payer MEDICAID, SELFPAY ==
--- NOTE | ~2023-09-01 | XR_ITS ---
EXAMINATION: BILATERAL ANKLES CLINICAL INFORMATION: Bilateral ankle pain and swelling COMPARISON: None available. TECHNIQUE: 2 views each ankle FINDINGS: There is mild soft tissue swelling at the ankles bilaterally, right greater than left ankle mortise is stable bilaterally. No ankle joint effusions are seen. No fractures or dislocations. XR/XR ankle LT 2V IMPRESSION: Mild soft tissue swelling without fracture.
--- NOTE | ~2023-09-01 | XR_ITS ---
EXAMINATION: XR CHEST CLINICAL INFORMATION: Central venous catheter placement COMPARISON: Chest 01/22/2023. TECHNIQUE: Frontal view of the chest was obtained. FINDINGS: No significant abnormality is noted involving the heart, lungs, mediastinum, bony thorax or soft tissues. There is a right central venous catheter with its tip in distal SVC. XR/XR chest 1V IMPRESSION: Unremarkable chest examination.
--- NOTE | ~2023-09-01 | XR_ITS ---
EXAMINATION: BILATERAL ANKLES CLINICAL INFORMATION: Bilateral ankle pain and swelling COMPARISON: None available. TECHNIQUE: 2 views each ankle FINDINGS: There is mild soft tissue swelling at the ankles bilaterally, right greater than left ankle mortise is stable bilaterally. No ankle joint effusions are seen. No fractures or dislocations. XR/XR ankle RT 2V IMPRESSION: Mild soft tissue swelling without fracture.
[2023-09-01 19:26] VITALS: BP 137/75; PULSE 101; RESP 16; TEMP 36.8; O2SAT 98
--- NOTE | 2023-09-01 19:38 | ECG_ITS ---
Test Reason : ALTERED MENTAL STATE Blood Pressure : / mmHG Vent. Rate : 096 BPM Atrial Rate : 096 BPM P-R Int : 154 ms QRS Dur : 104 ms QT Int : 398 ms P-R-T Axes : 062 016 -01 degrees QTc Int : 502 ms Normal sinus rhythm Inferior infarct , age undetermined Abnormal ECG When compared with ECG of 22-JAN-2023 10:57, Inferior infarct is now Present Nonspecific T wave abnormality, worse in Inferior leads Nonspecific T wave abnormality no longer evident in Anterior leads Referred By: Bob Ortega Electronically Signed By:Nathaniel Morgan
--- NOTE | 2023-09-01 19:38 | ED_ITS ---
HPI - General Adult General Chief complaint: Skin/Abscess/Foreign Body Stated complaint: rash on leg and abd Time Seen by Provider: 09/01/23 19:38 History of Present Illness HPI narrative: The patient is a 33-year-old female who describes herself has generally healthy although she admits to being an IV drug user. She has on no prescription medications and does not identify any medical problems other than her IV drug use. The patient says that she started to feel unwell about 5 or 6 days ago. She had a fever for a few days with her highest temperature being 103. Today she thought that her fever was better but today she developed red lesions on her legs that have been rapidly looking worse and she has developed swelling of both of her lower extremities. The redness and the swelling seemed to progress rapidly and she came to the emergency department. She last used injection IV drugs this morning. On reviewing her previous [facility] records she was seen here in October of 2021 for pelvic inflammatory disease. She was seen here in January of 2023 for a fever. She left the emergency room against medical advice that time and blood cultures came back positive for staph aureus. Related Data Allergies Allergy/AdvReac Type Severity Reaction Status Date / Time Sulfa (Sulfonamide Allergy Hives Verified 10/09/21 18:04 Antibiotics) Review of Systems 2 Review of Systems: Yes all other systems are reviewed and are negative [facility] Past Medical History Medical History Active intravenous drug use No known health problems Social History Social History Alcohol intake: former Smoked in Last 30 Days: No Substance Use Type: Heroin Advance Directives: No Advance Directives Information Provided: No Patient : No Physical Exam ED Vital Signs: Vital Signs - 24 hr 09/01/23 19:26 09/01/23 21:46 Temperature 98.3 F 97.8 F Pulse Rate 101 H 93 Respiratory Rate 16 18 Blood Pressure 137/75 126/88 Pulse Oximetry 98 95 Oxygen Delivery Method Room Air Room Air BMI result Body Mass Index 31.4 Const Other: The patient is awake and alert. Her mental status is normal. She has obviously swollen lower extremities with a dramatic rash on both lower extremities but from the waist up she does not appear obviously ill. HENMT Other: Face is symmetrical. Mucous membranes moist. Pharynx unremarkable. Eyes Other: Pupils are round equal, conjunctivae clear, extraocular movements intact Neck Other: No nuchal rigidity. No cervical adenopathy. Resp Effort & Inspection: normal respiratory effort Auscultation: clear to auscultation bilaterally Cardio Other: The patient has a regular rate and rhythm. There is a 2/6 systolic murmur. GI Other: Abdomen is soft and nontender Back/Spine/Pelvis Other: The appearance of the back is unremarkable. No significant rash on the back. Skin Other: Patient has edema of both lower legs for most of the legs and feet. There is a nonblanching erythematous rash characterized by macules and large areas of confluence erythema. The entire area of the involved skin is tender. Neuro Other: The patient is awake and alert. She has a normal mental status. Cranial nerves are intact. She moves her extremities symmetrically. She is grossly neurologically intact with a nontoxic demeanor. Extrem Other: Significant macular and confluence tender rash on both lower extremities. Medications Administered Generic Name Dose Route Start Last Admin Trade Name Freq PRN Reason Stop Dose Admin Acetaminophen 650 mg 09/02/23 00:06 09/02/23 10:03 Acetaminophen 325 Mg Tablet PO 650 mg Q6H PRN Administration Pain, Mild (Pain Scale 1-3) Enoxaparin Sodium 40 mg 09/02/23 09:00 09/02/23 09:50 Enoxaparin Sodium 40 Mg/0.4 Ml Syringe SUBCUT 40 mg Q24H DARIUSZ Administration Vancomycin HCl 1,250 mg/ 250 mls @ 166.667 mls/hr 09/02/23 10:00 09/02/23 12:00 Sodium Chloride IV Infused Q12H DARIUSZ Infusion Loratadine 10 mg 09/02/23 09:00 09/02/23 09:50 Loratadine 10 Mg Tablet PO 10 mg DAILY DARIUSZ Administration Morphine Sulfate 15 mg 09/02/23 00:06 09/02/23 10:03 Morphine Sulfate Immed Release 15 Mg Tablet PO 15 mg Q4H PRN Administration Pain, Severe (Pain Scale 7-10) Nicotine Polacrilex 2 mg 09/02/23 00:53 09/02/23 00:59 Nicotine Polacrilex 2 Mg Gum BUCCAL 2 mg Q2H PRN Administration Nicotine Cravings Sodium Chloride 3 ml 09/02/23 08:00 09/02/23 09:51 0.9 % Sodium Chloride Flush 3 Ml Syringe IVFLUSH 3 ml QSHIFT DARIUSZ Administration Triamcinolone Acetonide 1 appl 09/02/23 00:55 09/02/23 12:20 Triamcinolone Acet 0.1 % Cream 15 Gm Tube TOPICAL 1 appl BID [facility] Administration Protocol Discontinued Medications Generic Name Dose Route Start Last Admin Trade Name Thomas PRN Reason Stop Dose Admin Acetaminophen 975 mg 09/01/23 20:25 09/01/23 21:30 Acetaminophen 325 Mg Tablet PO 09/01/23 20:26 975 mg ONCE ONE Administration Diphenhydramine HCl 25 mg 09/02/23 00:54 09/02/23 06:26 Diphenhydramine Hcl 50 Mg/Ml Vial IVPUSH 09/02/23 00:55 25 mg ONCE ONE Administration Hydromorphone HCl 1 mg 09/01/23 21:08 09/01/23 21:29 Hydromorphone Hcl 1 Mg/Ml Syringe IM 09/01/23 21:09 1 mg ONCE ONE Administration Protocol Hydromorphone HCl 1 mg 09/01/23 22:27 09/01/23 22:58 Hydromorphone Hcl 1 Mg/Ml Syringe IVPUSH 09/01/23 22:28 1 mg ONCE ONE Administration Protocol Piperacillin Sod/Tazobactam 100 mls @ 200 mls/hr 09/01/23 19:40 09/01/23 22:21 Sod 4.5 gm/ Sodium Chloride IV 09/01/23 20:09 Infused ONCE ONE Infusion Vancomycin HCl 2,000 mg in 500 mls @ 250 mls/hr 09/01/23 19:41 09/01/23 22:19 Vancomycin/Ns IV 09/01/23 21:40 250 mls/hr ONCE ONE Administration Sodium Chloride 250 mls @ 999 mls/hr 09/02/23 00:30 09/02/23 01:05 Ns IV 09/02/23 00:45 Infused .Q16M DARIUSZ Infusion Ketorolac Tromethamine 30 mg 09/01/23 22:29 09/01/23 22:58 Ketorolac Tromethamine 30 Mg/Ml Vial IM 09/01/23 22:30 30 mg ONCE ONE Administration Lidocaine HCl 20 ml 09/02/23 09:34 09/02/23 11:10 Lidocaine Hcl 1 % 20 Ml Vial SUBCUT 09/02/23 09:35 Not Given ONCE ONE Lorazepam 1 mg 09/01/23 21:08 09/01/23 21:29 Lorazepam 2 Mg/Ml Vial IM 09/01/23 21:09 1 mg ONCE ONE Administration Methadone HCl 20 mg 09/02/23 11:24 09/02/23 12:21 Methadone Hcl 20 Mg/2 Ml Oral.Conc PO 09/02/23 11:25 20 mg ONCE ONE Administration Potassium Chloride 40 meq 09/02/23 00:27 09/02/23 00:47 Potassium Chloride Packet 20 Meq Packet PO 09/02/23 00:28 40 meq ONCE ONE Administration Procedures Central Line Placement Right IJ: Time Out Performed: Yes Patient Placed on Monitor/Pulse Ox: Yes MD Prep: mask, gown and gloves Central Line Prep: Chlorhexidine scrub and sterile drapes applied Local Anesthetic: lidocaine 1% Amount of anesthesia used (mL): 4 Ultrasound Used for Placement: Yes Central Line Lumen Inserted: triple Post Procedure: sutured in place, good blood return, all ports aspirated, flushed, capped and sterile dressing applied Post Procedure X-Ray: tip of catheter in good position and no pneumothorax seen Patient Tolerated Procedure: well and no complications Complications: none Medical Decision Making Medical Decision Making [facility] Narrative: The patient is a 33-year-old woman who was an IV drug user who reports having had a febrile illness for about a week. The fever seems to have resolved and she has now developed over the last 24 hours a dramatic swelling and rash of both lower extremities. The appearance of the swelling and rashes very remarkable but the patient is demeanor otherwise is nontoxic. I believe she has a cardiac murmur. I was most concerned about some kind of an infectious inflammatory etiology of the symptoms in her legs. She was seen promptly in labs were ordered promptly as were antibiotics but we had a great deal of difficulty obtaining phlebotomy and IV access. Nursing tried for peripheral IVs with ultrasound. I attempted a left external jugular IV without success. Ultimately because of lack of other access I consented the patient for a right internal jugular triple-lumen catheter from which we were able to obtain phlebotomy and administer antibiotics. Patient was also given pain medications as she seemed extremely uncomfortable. I was surprised at the results of the patient's blood work. She does not have a significant white count or left shift. She has not acidotic in any way. Her platelet count, INR, and PTT are unremarkable. The patient's lactate is normal. However her CRP and sed rate are significantly elevated. Given the results of the patient's laboratory evaluation I think it is unlikely that the patient is septic. Nevertheless the patient was covered with Zosyn and vancomycin. The patient reports taking doxycycline intermittently during the last week perhaps this is some kind of hypersensitivity reaction. In any event the patient's findings in her legs is very impressive and I think she will need to be hospitalized for further evaluation. She was admitted to the hospitalist service.. Lab Data 09/02/23 07:31 09/02/23 07:31 Labs: Lab Results 09/01/23 09/01/23 09/01/23 Range/Units 21:39 21:41 21:53 WBC 7.6 (4.8-10.8) X10*3/uL RBC 3.93 L (4.20-5.50) X10*6/uL Hgb 10.2 L (12.0-16.0) g/dl Hct 31.1 L (37.0-47.0) % MCV 79.1 L (80.0-98.0) fL MCH 26.0 L (27.0-33.0) pg MCHC 32.8 (31.0-35.0) g/dl RDW 15.4 (11.0-16.0) % Plt Count 284 D (160-400) X10*3/uL MPV 9.0 L (9.4-12.3) fL Immature Gran % (Auto) 1.2 H (0.0-0.4) % Neut % (Auto) 63.8 (45-73) % Lymph % (Auto) 24.3 (20-40) % Perry % (Auto) 9.3 (2-11) % Eos % (Auto) 1.0 (0-4) % Baso % (Auto) 0.4 (0-2) % Lymph # (Auto) 1.9 (1.2-4.9) X10*3/uL Perry # (Auto) 0.7 (0.1-1.2) X10*3/uL Eos # (Auto) 0.1 (0.0-0.4) X10*3/uL Baso # (Auto) 0.0 (0.0-0.2) X10*3/uL Abs Immat Gran (auto) 0.09 H (0.00-0.03) X10*3/uL Absolute Neuts (auto) 4.9 (2.0-8.3) x10*3/uL Absolute Nucleated RBC 0.000 (0.0-0.012) X10*3/uL Nucleated RBC % (auto) 0.0 (0.0-0.2) /100WBC ESR 92 H (0-20) MM/HR PT 16.8 H (11.1-13.3) SEC INR 1.4 H (0.9-1.1) APTT 25.4 L (26.0-36.8) SEC VBG pH 7.49 H (7.32-7.43) VBG pCO2 40 mmHg VBG pO2 46 mmHg VBG HCO3 31 H (22-26) mmol/L VBG O2 Saturation 74.0 % VBG Base Excess 7.4 mmol/L Sodium 134 L (135-145) mmol/L Potassium 3.0 L (3.3-5.1) mmol/L Chloride 97 (96-108) mmol/L Carbon Dioxide 28 (22-29) mmol/L Anion Gap 12 (12-20) BUN 10 (9-16) mg/dL Creatinine 0.64 (0.5-1.4) mg/dL Estim Creat Clear Calc 141.1 Estimated GFR > 60 Random Glucose 108 (60-115) mg/dL Lactic Acid 0.9 (0.5-2.0) mmol/L Calcium 9.4 (8.4-10.2) mg/dL Magnesium 2.0 (1.6-2.6) mg/dL Total Bilirubin 0.7 (0.0-1.0) mg/dL Direct Bilirubin 0.3 (0.0-0.5) mg/dL AST 26 (5-31) U/L ALT 12 (0-31) U/L Alkaline Phosphatase 107 (39-117) U/L Total Creatine Kinase 78 (26-140) U/L Troponin I High Sens < 2.7 (<3.5-17.0) ng/L C-Reactive Protein 17.56 H (< or = 0.50) mg/dL B-Natriuretic Peptide 22 (<100) pg/mL Total Protein 7.8 (6.5-8.0) g/dL Albumin 3.2 L (3.5-5.0) g/dL Beta HCG, Quant < 2 mIU/mL Ethyl Alcohol < 10 mg/dL Influenza Type A (PCR) NEGATIVE (Negative) Influenza Type B (PCR) NEGATIVE (Negative) RSV RNA Qual (PCR) NEGATIVE (Negative) SARS-CoV-2 RNA (RT-PCR) NEGATIVE (Negative) Critical Care Time Critical Care Time Critical Care Time: Yes Total Critical Care Time: 60 Attestation: The patient was critically ill with a high probability of imminent or life- threatening deterioration. ?I spent greater than 30 minutes of discontinuous time evaluating the patient, delivering critical care at the bedside, discussing evaluating data with consultants. ?Critical care time does not include time spent performing separately billable procedures or teaching. ?Time spent performing critical care with 60 minutes. Discharge Plan Discharge Clinical Impression: Rash and nonspecific skin eruption, Cardiac murmur, Active intravenous drug use Patient Disposition: Admitted As Inpatient
[2023-09-01 19:39] VITALS: BP 196/96; PULSE 115; O2SAT 98; BMI 31.4
[2023-09-01] MEDS: LORazepam 2 MG/ML VIAL 1 MG IM (21:29)
[2023-09-01] MEDS: HYDROmorphone HCl 1 MG/ML SYRINGE IM (21:29)
[2023-09-01] MEDS: Acetaminophen 325 MG TABLET 975 MG PO (21:30)
[2023-09-01] MEDS: Piperacillin Sodium/Tazobactam 4.5 GM in 0.9 % Sodium Chloride 100 ML IV (21:45)
[2023-09-01 21:46] VITALS: BP 126/88; PULSE 93; RESP 18; TEMP 36.6; O2SAT 95
[2023-09-01 21:57] LABS: MANUAL DIFF FLAG NO
[2023-09-01 21:58] LABS: Basophils Percent Auto 0.4 % (0-2); Eosinophils Absolute Auto 0.1 X10*3/uL (0.0-0.4); Hematocrit 31.1 % (37.0-47.0); Hemoglobin 10.2 g/dl (12.0-16.0); Imm Gran Abs Auto 0.09 X10*3/uL (0.00-0.03); Imm Gran Pct Auto 1.2 % (0.0-0.4); Lymphocytes Absolute Auto 1.9 X10*3/uL (1.2-4.9); Lymphocytes Percent Auto 24.3 % (20-40); Mean Corpuscular HGB Conc 32.8 g/dl (31.0-35.0); Mean Corpuscular Volume 79.1 fL (80.0-98.0); Monocytes Absolute Auto 0.7 X10*3/uL (0.1-1.2); Monocytes Percent Auto 9.3 % (2-11); Neutrophils Absolute Auto 4.9 x10*3/uL (2.0-8.3); Neutrophils Percent Auto 63.8 % (45-73); Platelet Count 284 X10*3/uL (160-400); Red Blood Count 3.93 X10*6/uL (4.20-5.50); Red Cell Distribution Width 15.4 % (11.0-16.0); White Blood Count 7.6 X10*3/uL (4.8-10.8)
[2023-09-01 22:04] LABS: INTERNATIONAL NORM RATIO 1.4 (0.9-1.1); Prothrombin Time 16.8 SEC (11.1-13.3)
[2023-09-01 22:06] LABS: VBG Base Excess 7.4 mmol/L; VBG HCO3 31 mmol/L (22-26); VBG pCO2 40 mmHg; VBG pH 7.49 (7.32-7.43); VBG pO2 46 mmHg
[2023-09-01 22:06] LABS: Partial Thromboplastin Time 25.4 SEC (26.0-36.8)
[2023-09-01 22:07] LABS: Venous Blood Gas Refer to POC result
[2023-09-01 22:12] LABS: Lactic Acid 0.9 mmol/L (0.5-2.0)
[2023-09-01] MEDS: vancomycin/NS 2,000 MG/500 ML PLAST..BAG 250 MG IV (22:19)
[2023-09-01 22:23] LABS: B Type Natriuretic Peptide 22 pg/mL (<100)
[2023-09-01 22:25] LABS: HCG Quantitative < 2 mIU/mL
[2023-09-01 22:26] LABS: Alanine Aminotransferase 12 U/L (0-31); Albumin Level 3.2 g/dL (3.5-5.0); Alkaline Phosphatase 107 U/L (39-117); Anion Gap 12 (12-20); Aspartate Amino Transferase 26 U/L (5-31); Bilirubin Direct 0.3 mg/dL (0.0-0.5); Bilirubin Total 0.7 mg/dL (0.0-1.0); Blood Urea Nitrogen 10 mg/dL (9-16); C Reactive Protein 17.56 mg/dL (< or = 0.50); Calcium 9.4 mg/dL (8.4-10.2); Carbon Dioxide 28 mmol/L (22-29); Chloride 97 mmol/L (96-108); Creatinine Clr Calc Pharmacy 141.1; Estimated Glomerular Filt Rate > 60; Ethanol < 10 mg/dL; Glucose Random 108 mg/dL (60-115); Sodium 134 mmol/L (135-145); Total Protein 7.8 g/dL (6.5-8.0)
[2023-09-01 22:35] LABS: Influenza A PCR NEGATIVE (Negative); Influenza B PCR NEGATIVE (Negative); Resp Syncy Virus RNA Qual PCR NEGATIVE (Negative); SARS COV2 PCR INHOUSE NEGATIVE (Negative)
[2023-09-01 22:40] LABS: Erythrocyte Sedimentation Rate 92 MM/HR (0-20)
[2023-09-01 22:44] LABS: Troponin-I High Sensitivity < 2.7 ng/L (<3.5-17.0)
[2023-09-01] MEDS: HYDROmorphone HCl 1 MG/ML SYRINGE IVPUSH (22:58)
[2023-09-01] MEDS: Ketorolac Tromethamine 30 MG/ML VIAL IM (22:58)
--- NOTE | 2023-09-02 00:08 | PM.IMHP ---
History of Present Illness Date of Service: 09/02/23 Chief Complaint: Fever This is a 33-year-old female with pertinent history of IVDU who presents to the emergency department for evaluation of fever and rash. Patient states she had a fever of about 103 that started about a week prior to presentation. Patient has been taking ibuprofen for it. She continues to be febrile every day. Also has associated headache and intermittent neck stiffness. Patient presents today as she noticed rash in her bilateral lower extremities from or hip to her toes. Also has severe pain and swelling in the lower extremities along with the rash. This started on the day of presentation. No history of similar rash before. Patient states she is unable to ambulate due to pain in her bilateral ankle joints. Endorses pain in bilateral knees and left finger joints. No nausea, vomiting, chest discomfort, palpitations, shortness of breath, changes in urinary bowel habits. No throat ache. Patient last used IV fentanyl on the day of presentation. Patient states she took doxycycline once daily for 4 days prior to coming to the ER today. Patient denies any pertinent medical history and is not on any prescription medications. Of note, patient was seen in January of 2023 for a fever. Blood cultures positive for staph aureus but patient left emergency room AMA In the emergency department, ESR and CRP found to be elevated. Review of Systems Constitutional: Constitutional: Reports chills and Reports fever(s) Cardiovascular: Cardiovascular: Reports no additional cardiovascular complaints Respiratory: Respiratory: Reports no additional respiratory complaints Gastrointestinal: Gastrointestinal: Reports no additional gastrointestinal complaints Genitourinary: Genitourinary: Reports no additional female genitourinary complaints [facility] Medical History Active intravenous drug use No known health problems Pertinent family history: No family history of early CAD Social History Alcohol intake: former Smoked in Last 30 Days: No Substance Use Type: Heroin Advance Directives: No Advance Directives Information Provided: No Patient : No Meds Allergies Allergy/AdvReac Type Severity Reaction Status Date / Time Sulfa (Sulfonamide Allergy Hives Verified 10/09/21 18:04 Antibiotics) Physical Exam Vital Signs and Narrative: Vital Signs: Last Vital Signs Temp 97.8 F 09/01/23 21:46 Pulse 93 09/01/23 21:46 Resp 18 09/01/23 21:46 BP 126/88 09/01/23 21:46 Pulse Ox 95 09/01/23 21:46 O2 Del Method Room Air 09/01/23 21:46 BMI result Body Mass Index 31.4 Middle-aged female lying in bed in no distress Neck supple, no JVD Regular rate and rhythm, S1-S2 heard, murmur present Regular breath sounds bilaterally, no wheezing or crackles appreciated Abdomen soft nontender, no guarding, no rigidity Patient is awake, alert and oriented to self, place, time and person ; no focal motor deficit Psych: Normal mood Skin: Bilateral upper extremities with track prieto ; bilateral lower extremities with swelling and painful rash as pictured below Skin: Other: Results Labs 09/01/23 21:39 09/01/23 21:39 Labs: Laboratory Results - last 24 hr 09/01/23 09/01/23 09/01/23 21:39 21:41 21:53 MCV 79.1 L MCH 26.0 L MCHC 32.8 RDW 15.4 Plt Count 284 D MPV 9.0 L Immature Gran % (Auto) 1.2 H Neut % (Auto) 63.8 Lymph % (Auto) 24.3 Antelope % (Auto) 9.3 Eos % (Auto) 1.0 Baso % (Auto) 0.4 Lymph # (Auto) 1.9 Antelope # (Auto) 0.7 Eos # (Auto) 0.1 Baso # (Auto) 0.0 Abs Immat Gran (auto) 0.09 H Absolute Neuts (auto) 4.9 Absolute Nucleated RBC 0.000 Nucleated RBC % (auto) 0.0 ESR 92 H PT 16.8 H INR 1.4 H APTT 25.4 L VBG pH 7.49 H VBG pCO2 40 VBG pO2 46 VBG HCO3 31 H VBG O2 Saturation 74.0 VBG Base Excess 7.4 Anion Gap 12 Estim Creat Clear Calc 141.1 Estimated GFR > 60 Random Glucose 108 Lactic Acid 0.9 Calcium 9.4 Magnesium 2.0 Total Bilirubin 0.7 Direct Bilirubin 0.3 AST 26 ALT 12 Alkaline Phosphatase 107 Total Creatine Kinase 78 Troponin I High Sens < 2.7 C-Reactive Protein 17.56 H B-Natriuretic Peptide 22 Total Protein 7.8 Albumin 3.2 L Beta HCG, Quant < 2 Ethyl Alcohol < 10 Influenza Type A (PCR) NEGATIVE Influenza Type B (PCR) NEGATIVE RSV RNA Qual (PCR) NEGATIVE SARS-CoV-2 RNA (RT-PCR) NEGATIVE Imaging Radiologist's Impressions: Impressions Chest X-Ray 09/01/23 21:55 IMPRESSION: Unremarkable chest examination. Assessment and Plan (1) Active intravenous drug use: Status: Acute (2) Rash and nonspecific skin eruption: Status: Acute Plan This is a 33-year-old female with pertinent history of IVDU who presents to the emergency department for evaluation of fever and rash. #. Bilateral lower extremity painful rash: ?drug hypersensitivity reaction to doxycycline. Reports she was febrile up to temperature 103 degrees F at home. Can not rule out infectious etiology in a patient with IVDU and previous blood culture with Staph aureus. Empiric IV vancomycin. Symptomatic treatment and monitor. #. Substance use disorder: Consulting Addiction Team. Monitor for withdrawal. UDS pending #. Microcytic anemia: Obtaining iron panel #. Hypokalemia: Repleted DVT prophylaxis: Lovenox Full code Admit as inpatient and will require two night minimum hospital stay for close monitoring of rash in a patient with IVDU, IV antibiotics (as above), which is not possible in a lesser acute setting. Quality Stroke Does the patient have a stroke diagnosis?: No VTE Prior VTE?: No VTE Risk Level:: Medical - moderate - high VTE Device Contraindication: Treatment Not Indicated VTE Drug Contraindication: N/A - Med Ordered
[2023-09-02 00:16] VITALS: BP 105/85; PULSE 91; RESP 18; TEMP 36.5; O2SAT 99
[2023-09-02] MEDS: Potassium Chloride Packet 20 MEQ PACKET 40 MEQ PO (00:47)
[2023-09-02] MEDS: 0.9 % Sodium Chloride 250 ML 999 ML IV (00:49)
[2023-09-02] MEDS: Morphine Sulfate Immed Release 15 MG TABLET PO ×4 (00:59→23:27)
[2023-09-02] MEDS: Nicotine Polacrilex 2 MG GUM BUCCAL (00:59)
[2023-09-02 06:00] VITALS: BP 110/65; PULSE 70; RESP 16; TEMP 37.1; O2SAT 96
[2023-09-02 06:17] LABS: Appearance Urine Clear; Color Urine Yellow; Glucose Urine UA Negative (Negative); Leukocyte Esterase Urine Trace (Negative); Nitrite Urine Negative (Negative); Specific Gravity - Urine 1.025 (1.005-1.025); UMIC TRIGGER UA YES; Urine Blood Large (3+) (Negative); Urine Ketones Negative (Negative); Urine Protein Trace mg/dL (Neg-Trace)
[2023-09-02 06:22] LABS: Bacteria Urine 2+ (None Seen); Granular Casts Urine Present; Hyaline Casts Urine 0-2 /LPF (0-2)
[2023-09-02] MEDS: diphenhydrAMINE HCL 50 MG/ML VIAL 25 MG IVPUSH (06:26)
[2023-09-02 06:42] LABS: Amphetamine Screen Urine Not Detected (Not Detect); Barbiturates, Urine Not Detected (Not Detect); Benzodiazepines Screen Urine Not Detected (Not Detect); Cannabinoid Screen Urine POSITIVE (Not Detect); Cocaine Screen Urine POSITIVE (Not Detect); Fentanyl, urine POSITIVE (Not Detect); Opiate Screen Urine POSITIVE (Not Detect); Phencyclidine Screen Urine Not Detected (Not Detect)
[2023-09-02 07:11] VITALS: BP 123/57; PULSE 74; RESP 14; TEMP 36.4; O2SAT 96
--- NOTE | 2023-09-02 07:13 | PC.NURSE ---
Assumed care of PT at 2315. Downtime from 0100 to 0600. PT medicated as per AUG. Requested KALEB Coyne Tech to complete belonging list- tech did not complete. Notified oncoming rn and tech aware.
[2023-09-02 08:08] LABS: MANUAL DIFF FLAG NO
[2023-09-02 08:24] LABS: Anion Gap 12 (12-20); Blood Urea Nitrogen 13 mg/dL (9-16); Carbon Dioxide 29 mmol/L (22-29); Chloride 101 mmol/L (96-108); Creatinine Clr Calc Pharmacy 110.2; Estimated Glomerular Filt Rate > 60; Glucose Random 103 mg/dL (60-115); Potassium 3.5 mmol/L (3.3-5.1); Sodium 138 mmol/L (135-145)
[2023-09-02 08:27] LABS: Basophils Absolute Auto 0.1 X10*3/uL (0.0-0.2); Basophils Percent Auto 0.6 % (0-2); Eosinophils Absolute Auto 0.1 X10*3/uL (0.0-0.4); Eosinophils Percent Auto 1.2 % (0-4); Hematocrit 29.8 % (37.0-47.0); Hemoglobin 9.5 g/dl (12.0-16.0); Imm Gran Abs Auto 0.16 X10*3/uL (0.00-0.03); Imm Gran Pct Auto 1.6 % (0.0-0.4); Iron 40 mcg/dL (30-160); Lymphocytes Absolute Auto 2.8 X10*3/uL (1.2-4.9); Mean Corpuscular HGB Conc 31.9 g/dl (31.0-35.0); Mean Corpuscular Hemoglobin 25.9 pg (27.0-33.0); Mean Corpuscular Volume 81.2 fL (80.0-98.0); Mean Platelet Volume 9.4 fL (9.4-12.3); Monocytes Absolute Auto 0.9 X10*3/uL (0.1-1.2); Monocytes Percent Auto 8.6 % (2-11); Percent Iron Saturation 24 % (15-50); Platelet Count 290 X10*3/uL (160-400); Red Blood Count 3.67 X10*6/uL (4.20-5.50); Red Cell Distribution Width 15.7 % (11.0-16.0); Total Iron Binding Capacity 167 mcg/dL (228-428); Unsaturated Iron Binding 127 ug/dL
[2023-09-02] MEDS: Loratadine 10 MG TABLET PO (09:50)
[2023-09-02] MEDS: Enoxaparin Sodium 40 MG/0.4 ML SYRINGE SUBCUT (09:50)
[2023-09-02] MEDS: 0.9 % Sodium Chloride Flush 3 ML SYRINGE IVFLUSH ×2 (09:51→16:51)
[2023-09-02] MEDS: vancomycin HCL 1,250 MG in 0.9 % Sodium Chloride 250 ML 166.67 MG IV (09:59)
[2023-09-02] MEDS: Acetaminophen 325 MG TABLET 650 MG PO (10:03)
--- NOTE | 2023-09-02 10:11 | PM.EVENT ---
Event Note Date of Service: 09/02/23 Event Note: Addiction consult placed for patient with IVDU Patient seen in room 16 of ED. Asleep initially, woke to her name. Denied any withdrawal sx, appeared comfortable Advised to request withdrawal medications should sx present--patient agreeable Will follow up later this afternoon or sooner if needed Time Spent With Patient Time: Total time managing care of this patient today ____ minutes.
--- NOTE | 2023-09-02 10:37 | PHA.MEDREC ---
Pharmacy Consult ? Medication Reconciliation Pharmacy has completed the medication reconciliation, pt reported no home medications.
--- NOTE | 2023-09-02 10:55 | PM.CNGS ---
History of Present Illness Consult details Consult date: 09/02/23 Narrative: [age] year old female with known act IV drug abuse, who came to the ER because of fever and a rash. She describes having this diffuse rash on both lower extremities for the past few weeks now. She has had pain on these areas. She admits to continue IV drug abuse. She has admitted because of this maculopapular rash on both lower extremities and I have been asked to do a skin biopsy. Review of Systems Constitutional: Constitutional: Reports chills and Reports fever(s) Cardiovascular: Cardiovascular: Denies chest pain, Denies dyspnea and Denies dyspnea on exertion Respiratory: Respiratory: Denies cough, Denies dyspnea and Denies dyspnea on exertion Gastrointestinal: Gastrointestinal: Denies hematochezia and Denies change in bowel habits Genitourinary: Genitourinary: Denies hematuria Musculoskeletal: Musculoskeletal: Reports back pain, Reports myalgias and Denies limited range of motion Neurologic: Denies focal weakness and Denies convulsions Psychiatric: Psychiatric: Denies depression and Denies mood swings [facility] Past Medical History Medical History Active intravenous drug use No known health problems Social History Social History Alcohol intake: former Smoked in Last 30 Days: No Substance Use Type: Heroin Advance Directives: No Advance Directives Information Provided: No Patient : No Meds Allergies Allergy/AdvReac Type Severity Reaction Status Date / Time Sulfa (Sulfonamide Allergy Hives Verified 10/09/21 18:04 Antibiotics) Active Medications: Current Medications Acetaminophen (Acetaminophen 325 Mg Tablet) 650 mg PO Q6H PRN PRN Reason: Pain, Mild (Pain Scale 1-3) Last Admin: 09/02/23 10:03 Dose: 650 mg Enoxaparin Sodium (Enoxaparin Sodium 40 Mg/0.4 Ml Syringe) 40 mg SUBCUT Q24H [facility] Last Admin: 09/02/23 09:50 Dose: 40 mg Vancomycin HCl 1,250 mg/ (Sodium Chloride) 250 mls @ 166.667 mls/hr IV Q12H [facility] Last Admin: 09/02/23 09:59 Dose: 166.67 mls/hr Loratadine (Loratadine 10 Mg Tablet) 10 mg PO DAILY [facility] Last Admin: 09/02/23 09:50 Dose: 10 mg Melatonin (Melatonin 3 Mg Tablet) 6 mg PO BEDTIME PRN PRN Reason: Insomnia Morphine Sulfate (Morphine Sulfate Immed Release 15 Mg Tablet) 15 mg PO Q4H PRN PRN Reason: Pain, Severe (Pain Scale 7-10) Last Admin: 09/02/23 10:03 Dose: 15 mg Nicotine Polacrilex (Nicotine Polacrilex 2 Mg Gum) 2 mg BUCCAL Q2H PRN PRN Reason: Nicotine Cravings Last Admin: 09/02/23 00:59 Dose: 2 mg Ondansetron HCl (Ondansetron Hcl 4 Mg/2 Ml Vial) 4 mg IVPUSH Q8H PRN PRN Reason: Nausea and Vomiting Pharmacy Consult (Consult Rx Vancomycin Dosing) 1 each MISCELLANE DAILY PRN PRN Reason: Consult order Sodium Chloride (0.9 % Sodium Chloride Flush 3 Ml Syringe) 3 ml IVFLUSH QSHIFT [facility] Last Admin: 09/02/23 09:51 Dose: 3 ml Triamcinolone Acetonide (Triamcinolone Acet 0.1 % Cream 15 Gm Tube) 1 appl TOPICAL BID [facility]; Protocol Last Admin: 09/02/23 06:24 Dose: Not Given Physical Exam Vital Signs: Vital Signs: Last Vital Signs Temp 97.6 F 09/02/23 07:11 Pulse 74 09/02/23 07:11 Resp 14 09/02/23 07:11 BP 123/57 L 09/02/23 07:11 Pulse Ox 96 09/02/23 07:11 O2 Del Method Room Air 09/02/23 07:11 BMI result Body Mass Index 31.4 Const: General: comfortable and no acute distress Orientation/consciousness: patient oriented x3 Neck: Neck: Yes no lymphadenopathy Resp: Auscultation: clear to auscultation bilaterally Cardio: Rhythm: regular rhythm GI: Palpation (GI): Soft to palpation, nontender and no guarding Neuro: General: patient oriented x3 Extrem: Other: Diffuse maculopapular rash on both lower extremities including the feet, no open wound Results Labs 09/02/23 07:31 09/02/23 07:31 Labs: Abnormal lab results 09/01/23 09/01/23 09/02/23 Range/Units 21:39 21:53 02:47 RBC 3.93 L (4.20-5.50) X10*6/uL Hgb 10.2 L (12.0-16.0) g/dl Hct 31.1 L (37.0-47.0) % MCV 79.1 L (80.0-98.0) fL MCH 26.0 L (27.0-33.0) pg MPV 9.0 L (9.4-12.3) fL Immature Gran % (Auto) 1.2 H (0.0-0.4) % Abs Immat Gran (auto) 0.09 H (0.00-0.03) X10*3/uL ESR 92 H (0-20) MM/HR PT 16.8 H (11.1-13.3) SEC INR 1.4 H (0.9-1.1) APTT 25.4 L (26.0-36.8) SEC VBG pH 7.49 H (7.32-7.43) VBG HCO3 31 H (22-26) mmol/L Sodium 134 L (135-145) mmol/L Potassium 3.0 L (3.3-5.1) mmol/L TIBC (228-428) mcg/dL C-Reactive Protein 17.56 H (< or = 0.50) mg/dL Albumin 3.2 L (3.5-5.0) g/dL Urine Blood Large (3+) H (Negative) Ur Leukocyte Esterase Trace H (Negative) Urine RBC 11-20 H (0-2) /HPF Urine WBC 11-20 H (0-5) /HPF Urine Opiates Screen POSITIVE H (Not Detect) Urine Fentanyl Screen POSITIVE H (Not Detect) Urine Cocaine Screen POSITIVE H (Not Detect) U Marijuana (THC) Screen POSITIVE H (Not Detect) 09/02/23 Range/Units 07:31 RBC 3.67 L (4.20-5.50) X10*6/uL Hgb 9.5 L (12.0-16.0) g/dl Hct 29.8 L (37.0-47.0) % MCV (80.0-98.0) fL MCH 25.9 L (27.0-33.0) pg MPV (9.4-12.3) fL Immature Gran % (Auto) 1.6 H (0.0-0.4) % Abs Immat Gran (auto) 0.16 H (0.00-0.03) X10*3/uL ESR (0-20) MM/HR PT (11.1-13.3) SEC INR (0.9-1.1) APTT (26.0-36.8) SEC VBG pH (7.32-7.43) VBG HCO3 (22-26) mmol/L Sodium (135-145) mmol/L Potassium (3.3-5.1) mmol/L TIBC 167 L (228-428) mcg/dL C-Reactive Protein (< or = 0.50) mg/dL Albumin (3.5-5.0) g/dL Urine Blood (Negative) Ur Leukocyte Esterase (Negative) Urine RBC (0-2) /HPF Urine WBC (0-5) /HPF Urine Opiates Screen (Not Detect) Urine Fentanyl Screen (Not Detect) Urine Cocaine Screen (Not Detect) U Marijuana (THC) Screen (Not Detect) Short CBC 09/01/23 09/02/23 Range/Units 21:39 07:31 WBC 7.6 10.0 (4.8-10.8) X10*3/uL Hgb 10.2 L 9.5 L (12.0-16.0) g/dl Hct 31.1 L 29.8 L (37.0-47.0) % Plt Count 284 D 290 (160-400) X10*3/uL BMP 09/01/23 09/02/23 09/02/23 21:39 07:31 07:31 Sodium 134 L 138 Potassium 3.0 L 3.5 Chloride 97 101 Carbon Dioxide 28 29 BUN 10 13 Creatinine 0.64 0.82 Cancelled Calcium 9.4 9.0 Cardiac Enzymes 09/01/23 Range/Units 21:39 Total Creatine Kinase 78 (26-140) U/L Liver Function 09/01/23 Range/Units 21:39 Total Bilirubin 0.7 (0.0-1.0) mg/dL Direct Bilirubin 0.3 (0.0-0.5) mg/dL AST 26 (5-31) U/L ALT 12 (0-31) U/L Alkaline Phosphatase 107 (39-117) U/L Albumin 3.2 L (3.5-5.0) g/dL Urine 09/02/23 09/02/23 09/02/23 Range/Units 02:47 02:47 02:47 Urine Color Cancelled Yellow Urine Appearance Cancelled Clear Urine pH Cancelled Ur Specific [place] Urine Protein Urine Glucose (UA) 09/02/23 09/02/23 09/02/23 Range/Units 02:47 02:47 02:47 Urine Color Urine Appearance Urine pH 6.0 Ur Specific [place] Cancelled 1.025 Urine Protein Cancelled Trace Urine Glucose (UA) Cancelled 09/02/23 Range/Units 02:47 Urine Color Urine Appearance Urine pH Ur Specific [place] Urine Protein Urine Glucose (UA) Negative All other labs normal. Assessment and Plan (1) Rash and nonspecific skin eruption: Status: Acute Plan Punch biopsy of the skin and subcutaneous tissue was done at bedside under local anesthesia. Said had been given by the patient prior to that Dressings were applied. Continue daily dressing changes with dry gauze. The rest of her management will depend on the hospitalist service. Procedures Date of Service Date of Service: 09/02/23 Procedure Note Procedure Note: Procedure: Punch biopsy of the skin of the right lower leg Preop diagnosis: Maculopapular rash on both lower extremities Postop diagnosis: The same Surgeon: Robert Vasquez An area with a maculopapular rash on the right lower leg was prepped and draped. Lidocaine 1% was used for local anesthesia. I used a 5 mm biopsy punch to excise skin and subcutaneous tissue. This was sent as a specimen. Dressings were applied. The procedure was completed. She tolerated procedure well. There were no immediate complications. There was no significant bleeding.
[2023-09-02 11:13] VITALS: BP 102/53; PULSE 72; RESP 18; TEMP 36.6; O2SAT 96
[2023-09-02 11:51] LABS: HBc Num1 0.31 S/CO (0.00-0.79); HIV AB/AG Nonreactive (Nonreactive); HIV Num 1 0.09 S/CO (0.00-0.99); Hepatitis A Antibody IgM 0.29 Index (0-0.79); Hepatitis B Core Antibody Nonreactive (Nonreactive); Hepatitis B Surface Antigen Negative (Negative); ~HepC Num1 0.23 S/CO (0.00-0.79); ~Hepatitis A Antibody IgM Nonreactive (Nonreactive); ~Hepatitis B Surface Antibody REACTIVE (Nonreactive); ~Hepatitis C Antibody Nonreactive (Nonreactive)
[2023-09-02] MEDS: Triamcinolone Acet 0.1 % Cream 15 GM TUBE 1 APPL TOPICAL ×2 (12:20→20:51)
[2023-09-02] MEDS: methADONE HCl 20 MG/2 ML ORAL.CONC PO (12:21)
--- NOTE | 2023-09-02 12:22 | MHC.CM.PN ---
Attempted to meet with patient in regards to discharge planning. Patient currently sleeping. No family present. Will attempt to meet again. Continue to monitor for d/c needs.
--- NOTE | 2023-09-02 13:58 | HO.ADDICT_ITS ---
History of Present Illness Date of Service: 09/02/2023 Chief Complaint: Fever Reason for Consult: OUD-withdrawal management Sources of Information: patient interviewed and chart reviewed HPI Narrative: Patient is a 33 year old female medically admitted with rash of bilateral lower extremities of unknown etiology. Consult placed as patient reported IVDU at time of admission. Patient seen X2 by this gag writer, earlier in the morning when patient was not experiencing/denied withdrawal sx and later in the afternoon once she was more awake. She recieved one dose of methadone 20mg around noon when she began to c/o withdrawal sx. Seen in room 16 of main ED. Awake, alert, pleasant and engaged in interview. She reports currently using approx 1/2 bundle heroin/fentanyl daily Cocaine use, denies any other substance use Starting using approx 7 years ago. Was in recovery for approx 5 years up until 2 years ago In terms of MOUD, she has taken methadone, max dose 50-60mg. She reports methadone was rapidly tapered off due to ongoing QT prolongation. Unclear when this was. Has taken bupernorphine in the past--does not care for it. Denies Hepatitis or HIV Denies any chronic medical issues At time if interview patient appeared comfortable and denied any withdrawal sx. She is unsure if she wants to initiate MOUD while here. Review of Systems Constitutional: Reports as per HPI Diagnostics Vital Signs (24Hr): Vital Signs - 24 hr 09/01/23 19:26 09/01/23 21:46 09/02/23 00:16 Temperature 98.3 F 97.8 F 97.7 F Pulse Rate 101 H 93 91 Respiratory Rate 16 18 18 Blood Pressure 137/75 126/88 105/85 Pulse Oximetry 98 95 99 Oxygen Delivery Method Room Air Room Air Room Air 09/02/23 06:00 09/02/23 07:11 09/02/23 11:13 Temperature 98.7 F 97.6 F 98 F Pulse Rate 70 74 72 Respiratory Rate 16 14 18 Blood Pressure 110/65 123/57 L 102/53 L Pulse Oximetry 96 96 96 Oxygen Delivery Method Room Air Room Air BMI result Body Mass Index 31.4 Labs 09/02/23 07:31 09/02/23 07:31 Labs: Laboratory Results - last 48 hr 09/01/23 09/01/23 09/01/23 21:39 21:41 21:53 WBC 7.6 RBC 3.93 L Hgb 10.2 L Hct 31.1 L MCV 79.1 L MCH 26.0 L MCHC 32.8 RDW 15.4 Plt Count 284 D MPV 9.0 L Immature Gran % (Auto) 1.2 H Neut % (Auto) 63.8 Lymph % (Auto) 24.3 [place] % (Auto) 9.3 Eos % (Auto) 1.0 Baso % (Auto) 0.4 Lymph # (Auto) 1.9 [place] # (Auto) 0.7 Eos # (Auto) 0.1 Baso # (Auto) 0.0 Abs Immat Gran (auto) 0.09 H Absolute Neuts (auto) 4.9 Absolute Nucleated RBC 0.000 Nucleated RBC % (auto) 0.0 ESR 92 H PT 16.8 H INR 1.4 H APTT 25.4 L VBG pH 7.49 H VBG pCO2 40 VBG pO2 46 VBG HCO3 31 H VBG O2 Saturation 74.0 VBG Base Excess 7.4 Sodium 134 L Potassium 3.0 L Chloride 97 Carbon Dioxide 28 Anion Gap 12 BUN 10 Creatinine 0.64 Estim Creat Clear Calc 141.1 Estimated GFR > 60 Random Glucose 108 Lactic Acid 0.9 Calcium 9.4 Magnesium 2.0 Iron TIBC % Saturation Unsat Iron Binding Total Bilirubin 0.7 Direct Bilirubin 0.3 AST 26 ALT 12 Alkaline Phosphatase 107 Total Creatine Kinase 78 Troponin I High Sens < 2.7 C-Reactive Protein 17.56 H B-Natriuretic Peptide 22 Total Protein 7.8 Albumin 3.2 L Beta HCG, Quant < 2 Urine Color Urine Appearance Urine pH Ur Specific [place] Urine Protein Urine Glucose (UA) Urine Ketones Urine Blood Urine Nitrite Ur Leukocyte Esterase Urine RBC Urine WBC Ur Squamous Epith Cells Urine Bacteria Hyaline Casts Granular Casts Urine Opiates Screen Urine Fentanyl Screen Ur Barbiturates Screen Ur Phencyclidine Scrn Ur Amphetamines Screen U Benzodiazepines Scrn Urine Cocaine Screen U Marijuana (THC) Screen Ethyl Alcohol < 10 Hepatitis A IgM Ab Hep Bs Antigen Hep Bs Antibody Hep B Core Total Ab Hepatitis C Ab (EIA) HIV 1&2 Ab/P24 Ag 4thGn Influenza Type A (PCR) NEGATIVE Influenza Type B (PCR) NEGATIVE RSV RNA Qual (PCR) NEGATIVE SARS-CoV-2 RNA (RT-PCR) NEGATIVE 09/02/23 09/02/23 09/02/23 02:47 02:47 02:47 WBC RBC Hgb Hct MCV MCH MCHC RDW Plt Count MPV Immature Gran % (Auto) Neut % (Auto) Lymph % (Auto) [place] % (Auto) Eos % (Auto) Baso % (Auto) Lymph # (Auto) [place] # (Auto) Eos # (Auto) Baso # (Auto) Abs Immat Gran (auto) Absolute Neuts (auto) Absolute Nucleated RBC Nucleated RBC % (auto) ESR PT INR APTT VBG pH VBG pCO2 VBG pO2 VBG HCO3 VBG O2 Saturation VBG Base Excess Sodium Potassium Chloride Carbon Dioxide Anion Gap BUN Creatinine Estim Creat Clear Calc Estimated GFR Random Glucose Lactic Acid Calcium Magnesium Iron TIBC % Saturation Unsat Iron Binding Total Bilirubin Direct Bilirubin AST ALT Alkaline Phosphatase Total Creatine Kinase Troponin I High Sens C-Reactive Protein B-Natriuretic Peptide Total Protein Albumin Beta HCG, Quant Urine Color Cancelled Yellow Urine Appearance Cancelled Clear Urine pH Cancelled Ur Specific [place] Urine Protein Urine Glucose (UA) Urine Ketones Urine Blood Urine Nitrite Ur Leukocyte Esterase Urine RBC Urine WBC Ur Squamous Epith Cells Urine Bacteria Hyaline Casts Granular Casts Urine Opiates Screen Urine Fentanyl Screen Ur Barbiturates Screen Ur Phencyclidine Scrn Ur Amphetamines Screen U Benzodiazepines Scrn Urine Cocaine Screen U Marijuana (THC) Screen Ethyl Alcohol Hepatitis A IgM Ab Hep Bs Antigen Hep Bs Antibody Hep B Core Total Ab Hepatitis C Ab (EIA) HIV 1&2 Ab/P24 Ag 4thGn Influenza Type A (PCR) Influenza Type B (PCR) RSV RNA Qual (PCR) SARS-CoV-2 RNA (RT-PCR) 09/02/23 09/02/23 09/02/23 02:47 02:47 02:47 WBC RBC Hgb Hct MCV MCH MCHC RDW Plt Count MPV Immature Gran % (Auto) Neut % (Auto) Lymph % (Auto) [place] % (Auto) Eos % (Auto) Baso % (Auto) Lymph # (Auto) [place] # (Auto) Eos # (Auto) Baso # (Auto) Abs Immat Gran (auto) Absolute Neuts (auto) Absolute Nucleated RBC Nucleated RBC % (auto) ESR PT INR APTT VBG pH VBG pCO2 VBG pO2 VBG HCO3 VBG O2 Saturation VBG Base Excess Sodium Potassium Chloride Carbon Dioxide Anion Gap BUN Creatinine Estim Creat Clear Calc Estimated GFR Random Glucose Lactic Acid Calcium Magnesium Iron TIBC % Saturation Unsat Iron Binding Total Bilirubin Direct Bilirubin AST ALT Alkaline Phosphatase Total Creatine Kinase Troponin I High Sens C-Reactive Protein B-Natriuretic Peptide Total Protein Albumin Beta HCG, Quant Urine Color Urine Appearance Urine pH 6.0 Ur Specific [place] Cancelled 1.025 Urine Protein Cancelled Trace Urine Glucose (UA) Cancelled Urine Ketones Urine Blood Urine Nitrite Ur Leukocyte Esterase Urine RBC Urine WBC Ur Squamous Epith Cells Urine Bacteria Hyaline Casts Granular Casts Urine Opiates Screen Urine Fentanyl Screen Ur Barbiturates Screen Ur Phencyclidine Scrn Ur Amphetamines Screen U Benzodiazepines Scrn Urine Cocaine Screen U Marijuana (THC) Screen Ethyl Alcohol Hepatitis A IgM Ab Hep Bs Antigen Hep Bs Antibody Hep B Core Total Ab Hepatitis C Ab (EIA) HIV 1&2 Ab/P24 Ag 4thGn Influenza Type A (PCR) Influenza Type B (PCR) RSV RNA Qual (PCR) SARS-CoV-2 RNA (RT-PCR) 09/02/23 09/02/23 09/02/23 02:47 02:47 02:47 WBC RBC Hgb Hct MCV MCH MCHC RDW Plt Count MPV Immature Gran % (Auto) Neut % (Auto) Lymph % (Auto) [place] % (Auto) Eos % (Auto) Baso % (Auto) Lymph # (Auto) [place] # (Auto) Eos # (Auto) Baso # (Auto) Abs Immat Gran (auto) Absolute Neuts (auto) Absolute Nucleated RBC Nucleated RBC % (auto) ESR PT INR APTT VBG pH VBG pCO2 VBG pO2 VBG HCO3 VBG O2 Saturation VBG Base Excess Sodium Potassium Chloride Carbon Dioxide Anion Gap BUN Creatinine Estim Creat Clear Calc Estimated GFR Random Glucose Lactic Acid Calcium Magnesium Iron TIBC % Saturation Unsat Iron Binding Total Bilirubin Direct Bilirubin AST ALT Alkaline Phosphatase Total Creatine Kinase Troponin I High Sens C-Reactive Protein B-Natriuretic Peptide Total Protein Albumin Beta HCG, Quant Urine Color Urine Appearance Urine pH Ur Specific [place] Urine Protein Urine Glucose (UA) Negative Urine Ketones Cancelled Negative Urine Blood Cancelled Large (3+) H Urine Nitrite Cancelled Ur Leukocyte Esterase Urine RBC Urine WBC Ur Squamous Epith Cells Urine Bacteria Hyaline Casts Granular Casts Urine Opiates Screen Urine Fentanyl Screen Ur Barbiturates Screen Ur Phencyclidine Scrn Ur Amphetamines Screen U Benzodiazepines Scrn Urine Cocaine Screen U Marijuana (THC) Screen Ethyl Alcohol Hepatitis A IgM Ab Hep Bs Antigen Hep Bs Antibody Hep B Core Total Ab Hepatitis C Ab (EIA) HIV 1&2 Ab/P24 Ag 4thGn Influenza Type A (PCR) Influenza Type B (PCR) RSV RNA Qual (PCR) SARS-CoV-2 RNA (RT-PCR) 09/02/23 09/02/23 09/02/23 02:47 02:47 07:31 WBC 10.0 RBC 3.67 L Hgb 9.5 L Hct 29.8 L MCV 81.2 MCH 25.9 L MCHC 31.9 RDW 15.7 Plt Count 290 MPV 9.4 Immature Gran % (Auto) 1.6 H Neut % (Auto) 60.0 Lymph % (Auto) 28.0 [place] % (Auto) 8.6 Eos % (Auto) 1.2 Baso % (Auto) 0.6 Lymph # (Auto) 2.8 [place] # (Auto) 0.9 Eos # (Auto) 0.1 Baso # (Auto) 0.1 Abs Immat Gran (auto) 0.16 H Absolute Neuts (auto) 6.0 Absolute Nucleated RBC 0.000 Nucleated RBC % (auto) 0.0 ESR PT INR APTT VBG pH VBG pCO2 VBG pO2 VBG HCO3 VBG O2 Saturation VBG Base Excess Sodium 138 Potassium 3.5 Chloride 101 Carbon Dioxide 29 Anion Gap 12 BUN 13 Creatinine 0.82 Estim Creat Clear Calc Estimated GFR Random Glucose Lactic Acid Calcium Magnesium Iron TIBC % Saturation Unsat Iron Binding Total Bilirubin Direct Bilirubin AST ALT Alkaline Phosphatase Total Creatine Kinase Troponin I High Sens C-Reactive Protein B-Natriuretic Peptide Total Protein Albumin Beta HCG, Quant Urine Color Urine Appearance Urine pH Ur Specific [place] Urine Protein Urine Glucose (UA) Urine Ketones Urine Blood Urine Nitrite Negative Ur Leukocyte Esterase Cancelled Trace H Urine RBC 11-20 H Urine WBC 11-20 H Ur Squamous Epith Cells 3-5 Urine Bacteria 2+ Hyaline Casts 0-2 Granular Casts Present Urine Opiates Screen POSITIVE H Urine Fentanyl Screen POSITIVE H Ur Barbiturates Screen Not Detected Ur Phencyclidine Scrn Not Detected Ur Amphetamines Screen Not Detected U Benzodiazepines Scrn Not Detected Urine Cocaine Screen POSITIVE H U Marijuana (THC) Screen POSITIVE H Ethyl Alcohol Hepatitis A IgM Ab Hep Bs Antigen Hep Bs Antibody Hep B Core Total Ab Hepatitis C Ab (EIA) HIV 1&2 Ab/P24 Ag 4thGn Influenza Type A (PCR) Influenza Type B (PCR) RSV RNA Qual (PCR) SARS-CoV-2 RNA (RT-PCR) 09/02/23 09/02/23 09/02/23 07:31 07:31 07:31 WBC RBC Hgb Hct MCV MCH MCHC RDW Plt Count MPV Immature Gran % (Auto) Neut % (Auto) Lymph % (Auto) [place] % (Auto) Eos % (Auto) Baso % (Auto) Lymph # (Auto) [place] # (Auto) Eos # (Auto) Baso # (Auto) Abs Immat Gran (auto) Absolute Neuts (auto) Absolute Nucleated RBC Nucleated RBC % (auto) ESR PT INR APTT VBG pH VBG pCO2 VBG pO2 VBG HCO3 VBG O2 Saturation VBG Base Excess Sodium Potassium Chloride Carbon Dioxide Anion Gap BUN Creatinine Cancelled Estim Creat Clear Calc 110.2 Cancelled Estimated GFR > 60 Cancelled Random Glucose 103 Lactic Acid Calcium 9.0 Magnesium Iron 40 TIBC 167 L % Saturation 24 Unsat Iron Binding 127 Total Bilirubin Direct Bilirubin AST ALT Alkaline Phosphatase Total Creatine Kinase Troponin I High Sens C-Reactive Protein B-Natriuretic Peptide Total Protein Albumin Beta HCG, Quant Urine Color Urine Appearance Urine pH Ur Specific [place] Urine Protein Urine Glucose (UA) Urine Ketones Urine Blood Urine Nitrite Ur Leukocyte Esterase Urine RBC Urine WBC Ur Squamous Epith Cells Urine Bacteria Hyaline Casts Granular Casts Urine Opiates Screen Urine Fentanyl Screen Ur Barbiturates Screen Ur Phencyclidine Scrn Ur Amphetamines Screen U Benzodiazepines Scrn Urine Cocaine Screen U Marijuana (THC) Screen Ethyl Alcohol Hepatitis A IgM Ab Hep Bs Antigen Hep Bs Antibody Hep B Core Total Ab Hepatitis C Ab (EIA) HIV 1&2 Ab/P24 Ag 4thGn Influenza Type A (PCR) Influenza Type B (PCR) RSV RNA Qual (PCR) SARS-CoV-2 RNA (RT-PCR) 09/02/23 11:00 WBC RBC Hgb Hct MCV MCH MCHC RDW Plt Count MPV Immature Gran % (Auto) Neut % (Auto) Lymph % (Auto) [place] % (Auto) Eos % (Auto) Baso % (Auto) Lymph # (Auto) [place] # (Auto) Eos # (Auto) Baso # (Auto) Abs Immat Gran (auto) Absolute Neuts (auto) Absolute Nucleated RBC Nucleated RBC % (auto) ESR PT INR APTT VBG pH VBG pCO2 VBG pO2 VBG HCO3 VBG O2 Saturation VBG Base Excess Sodium Potassium Chloride Carbon Dioxide Anion Gap BUN Creatinine Estim Creat Clear Calc Estimated GFR Random Glucose Lactic Acid Calcium Magnesium Iron TIBC % Saturation Unsat Iron Binding Total Bilirubin Direct Bilirubin AST ALT Alkaline Phosphatase Total Creatine Kinase 46 Troponin I High Sens C-Reactive Protein B-Natriuretic Peptide Total Protein Albumin Beta HCG, Quant Urine Color Urine Appearance Urine pH Ur Specific [place] Urine Protein Urine Glucose (UA) Urine Ketones Urine Blood Urine Nitrite Ur Leukocyte Esterase Urine RBC Urine WBC Ur Squamous Epith Cells Urine Bacteria Hyaline Casts Granular Casts Urine Opiates Screen Urine Fentanyl Screen Ur Barbiturates Screen Ur Phencyclidine Scrn Ur Amphetamines Screen U Benzodiazepines Scrn Urine Cocaine Screen U Marijuana (THC) Screen Ethyl Alcohol Hepatitis A IgM Ab Nonreactive Hep Bs Antigen Negative Hep Bs Antibody REACTIVE Hep B Core Total Ab Nonreactive Hepatitis C Ab (EIA) Nonreactive HIV 1&2 Ab/P24 Ag 4thGn Nonreactive Influenza Type A (PCR) Influenza Type B (PCR) RSV RNA Qual (PCR) SARS-CoV-2 RNA (RT-PCR) Imaging Radiology Impressions: ITS Impressions Chest X-Ray 09/01/23 21:55 IMPRESSION: Unremarkable chest examination. Ankle X-Ray 09/02/23 00:34 IMPRESSION: Mild soft tissue swelling without fracture. Ankle X-Ray 09/02/23 00:34 IMPRESSION: Mild soft tissue swelling without fracture. Mental Status Exam Mental Status Exam Patient Appearance: Appropriate Level of Consciousness: Awake, Appropriate and Alert Patient Behavior: Appropriate and Cooperative Speech Pattern: Clear Thought Process: Intact Thought Content: positive for Intact Medications Medications Current Medications Acetaminophen (Acetaminophen 325 Mg Tablet) 650 mg PO Q6H PRN PRN Reason: Pain, Mild (Pain Scale 1-3) Last Admin: 09/02/23 10:03 Dose: 650 mg Enoxaparin Sodium (Enoxaparin Sodium 40 Mg/0.4 Ml Syringe) 40 mg SUBCUT Q24H [facility] Last Admin: 09/02/23 09:50 Dose: 40 mg Vancomycin HCl 1,250 mg/ (Sodium Chloride) 250 mls @ 166.667 mls/hr IV Q12H [facility] Last Admin: 09/02/23 09:59 Dose: 166.67 mls/hr Loratadine (Loratadine 10 Mg Tablet) 10 mg PO DAILY [facility] Last Admin: 09/02/23 09:50 Dose: 10 mg Melatonin (Melatonin 3 Mg Tablet) 6 mg PO BEDTIME PRN PRN Reason: Insomnia Morphine Sulfate (Morphine Sulfate Immed Release 15 Mg Tablet) 15 mg PO Q4H PRN PRN Reason: Pain, Severe (Pain Scale 7-10) Last Admin: 09/02/23 10:03 Dose: 15 mg Nicotine Polacrilex (Nicotine Polacrilex 2 Mg Gum) 2 mg BUCCAL Q2H PRN PRN Reason: Nicotine Cravings Last Admin: 09/02/23 00:59 Dose: 2 mg Ondansetron HCl (Ondansetron Hcl 4 Mg/2 Ml Vial) 4 mg IVPUSH Q8H PRN PRN Reason: Nausea and Vomiting Pharmacy Consult (Consult Rx Vancomycin Dosing) 1 each MISCELLANE DAILY PRN PRN Reason: Consult order Sodium Chloride (0.9 % Sodium Chloride Flush 3 Ml Syringe) 3 ml IVFLUSH QSHIFT [facility] Last Admin: 09/02/23 09:51 Dose: 3 ml Triamcinolone Acetonide (Triamcinolone Acet 0.1 % Cream 15 Gm Tube) 1 appl TOPICAL BID [facility]; Protocol Last Admin: 09/02/23 12:20 Dose: 1 appl Allergies Allergies Allergy/AdvReac Type Severity Reaction Status Date / Time Sulfa (Sulfonamide Allergy Hives Verified 10/09/21 18:04 Antibiotics) Assessment & Plan Assessment & Plan (1) Opioid use disorder: Status: Acute Code(s): F11.90 - Opioid use, unspecified, uncomplicated Assessment and Plan: * based on history, not appropriate to continue methadone * continue morphine and PO PRN full agonists to address withdrawal PRN * patient unsure at this time if she wishes to continue with MOUD outpatient * will continue to follow Total time managing care of this patient today _45___ minutes. PMFSH Past Medical History Medical History Active intravenous drug use No known health problems Social History Social History Alcohol intake: former Patient Tobacco Use Status: Current everyday Tobacco user Smoked in Last 30 Days: No Substance Use Type: Heroin Advance Directives: No Advance Directives Information Provided: No Nutrition Risks: No Nutritional Risk Patient : No
--- NOTE | 2023-09-02 15:24 | PM.EVENT ---
Event Note Date of Service: 09/02/23 Event Note: seen and examined this morning follow up for diffuse b/l lower extremity rash, continues to be painful was previously taking doxycycline that she had left over and initial thought was rash was due to abx other possibilities include vasculitis vs infectious inflammatory markers elevated, vasculitis lab work up pending, punch bx obtained by general surgery ID consult pending blood cultures negative to date IVDU. 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 currently on pain medication for leg pain, no withdrawal symptoms at this time hypokalemia. resolved with replacement Time Spent With Patient Time: Total time managing care of this patient today ____ minutes.
--- NOTE | 2023-09-02 16:51 | P.CNID_ITS ---
History of Present Illness Data of Consult Service Date: 09/02/23 Requesting physician: Jeannie Donovan Primary Care Provider: None Physician HPI Reason for consult: rash, probable sepsis staph aureus She presents to hospital with fever and feeling unwell for last 5-6 days. She has temperature 100.8 as well as tachycardia to 100s . She had MSSA bacteremia in January 2023 and went AMA and doesnt mention what happened after. She denies grafts or hardware. She mentions no known endocarditis or spinal infection. She uses IV drugs. Results showe negative HIV and negative Hepatitis and no Hepatitis B. Review of Systems 2 Review of Systems: Yes all other systems are reviewed and are negative Integumentary/Breasts: Skin/Breast: Reports rash PMFSH Past Medical History Medical History Active intravenous drug use No known health problems Family History Family history: reviewed and not pertinent Social History Social History Alcohol intake: former Smoked in Last 30 Days: No Substance Use Type: Heroin Advance Directives: No Advance Directives Information Provided: No Patient : No Meds Allergies Allergy/AdvReac Type Severity Reaction Status Date / Time Sulfa (Sulfonamide Allergy Hives Verified 10/09/21 18:04 Antibiotics) Active Medications: Current Medications Acetaminophen (Acetaminophen 325 Mg Tablet) 650 mg PO Q6H PRN PRN Reason: Pain, Mild (Pain Scale 1-3) Last Admin: 09/02/23 10:03 Dose: 650 mg Enoxaparin Sodium (Enoxaparin Sodium 40 Mg/0.4 Ml Syringe) 40 mg SUBCUT Q24H [facility] Last Admin: 09/02/23 09:50 Dose: 40 mg Vancomycin HCl 1,250 mg/ (Sodium Chloride) 250 mls @ 166.667 mls/hr IV Q12H [facility] Last Infusion: 09/02/23 12:00 Dose: Infused Cefazolin Sodium 2 gm/ Sodium (Chloride) 50 mls @ 100 mls/hr IV Q8H [facility] Loratadine (Loratadine 10 Mg Tablet) 10 mg PO DAILY [facility] Last Admin: 09/02/23 09:50 Dose: 10 mg Melatonin (Melatonin 3 Mg Tablet) 6 mg PO BEDTIME PRN PRN Reason: Insomnia Morphine Sulfate (Morphine Sulfate Immed Release 15 Mg Tablet) 15 mg PO Q4H PRN PRN Reason: Pain, Severe (Pain Scale 7-10) Last Admin: 09/02/23 10:03 Dose: 15 mg Nicotine Polacrilex (Nicotine Polacrilex 2 Mg Gum) 2 mg BUCCAL Q2H PRN PRN Reason: Nicotine Cravings Last Admin: 09/02/23 00:59 Dose: 2 mg Ondansetron HCl (Ondansetron Hcl 4 Mg/2 Ml Vial) 4 mg IVPUSH Q8H PRN PRN Reason: Nausea and Vomiting Pharmacy Consult (Consult Rx Vancomycin Dosing) 1 each MISCELLANE DAILY PRN PRN Reason: Consult order Sodium Chloride (0.9 % Sodium Chloride Flush 3 Ml Syringe) 3 ml IVFLUSH QSHIFT [facility] Last Admin: 09/02/23 09:51 Dose: 3 ml Triamcinolone Acetonide (Triamcinolone Acet 0.1 % Cream 15 Gm Tube) 1 appl TOPICAL BID [facility]; Protocol Last Admin: 09/02/23 12:20 Dose: 1 appl Physical Exam 2 Vital Signs: Vital Signs: Last Vital Signs Temp 98 F 09/02/23 11:13 Pulse 72 09/02/23 11:13 Resp 18 09/02/23 11:13 BP 102/53 L 09/02/23 11:13 Pulse Ox 96 09/02/23 11:13 O2 Del Method Room Air 09/02/23 07:11 BMI result Body Mass Index 31.4 Const: General: cooperative HEENT: Head: Yes normal to inspection Face and sinus: Yes normal facial exam Mouth: Normal oral and palatal mucosa present Teeth and gingiva: d entition normal Eyes: General: appearance normal, both eyes and all related structures P upils: Equal, round and reactive pupils present Resp: Effort & Inspection: normal respiratory effort Cardio: Rate: regular rate Rhythm: regular rhythm Heart sounds: Murmur heart sound present (2/6 MARIAM) GI: Palpation (GI): Soft to palpation and nontender : General: Yes no CVA tenderness Back/Spine/Pelvis: Back: no CVA tenderness Skin: Other: bilateral legs foot to chapman maculpapular rash becoming confluent none on face or chest Neuro: General: moves all extremities Cranial nerves: Yes Equal, round and reactive pupils present Extrem: General: Yes normal to inspection Psych: Appearance: grossly normal Results Labs 09/02/23 07:31 09/02/23 07:31 Labs: Short CBC 09/01/23 09/02/23 Range/Units 21:39 07:31 WBC 7.6 10.0 (4.8-10.8) X10*3/uL Hgb 10.2 L 9.5 L (12.0-16.0) g/dl Hct 31.1 L 29.8 L (37.0-47.0) % Plt Count 284 D 290 (160-400) X10*3/uL BMP 09/01/23 09/02/23 09/02/23 21:39 07:31 07:31 Sodium 134 L 138 Potassium 3.0 L 3.5 Chloride 97 101 Carbon Dioxide 28 29 BUN 10 13 Creatinine 0.64 0.82 Cancelled Calcium 9.4 9.0 Cardiac Enzymes 09/01/23 09/02/23 Range/Units 21:39 11:00 Total Creatine Kinase 78 46 (26-140) U/L Liver Function 09/01/23 Range/Units 21:39 Total Bilirubin 0.7 (0.0-1.0) mg/dL Direct Bilirubin 0.3 (0.0-0.5) mg/dL AST 26 (5-31) U/L ALT 12 (0-31) U/L Alkaline Phosphatase 107 (39-117) U/L Albumin 3.2 L (3.5-5.0) g/dL Urine 09/02/23 09/02/23 09/02/23 Range/Units 02:47 02:47 02:47 Urine Color Cancelled Yellow Urine Appearance Cancelled Clear Urine pH Cancelled Ur Specific [place] Urine Protein Urine Glucose (UA) 09/02/23 09/02/23 09/02/23 Range/Units 02:47 02:47 02:47 Urine Color Urine Appearance Urine pH 6.0 Ur Specific [place] Cancelled 1.025 Urine Protein Cancelled Trace Urine Glucose (UA) Cancelled 09/02/23 Range/Units 02:47 Urine Color Urine Appearance Urine pH Ur Specific [place] Urine Protein Urine Glucose (UA) Negative Assessment and Plan (1) Opioid use disorder: Status: Acute (2) Active intravenous drug use: Status: Acute (3) Cardiac murmur: Status: Acute (4) Rash and nonspecific skin eruption: Status: Acute Plan This is probable infective endocarditis from staph aureus. Viruses such as parvovirus are possible and less likely measles as this spreads from face down. Would await cultures blood. Add Kezol to Vancomycin for concern over MSSA and possible synergy for MRSA. Check transthoracic echo. Respiratory isolation and stop it if blood cultures positive. If blood cultures negative check measles IgM and check with state DPH.
--- NOTE | 2023-09-02 17:03 | P.EN_ITS ---
Event Note Date of Service: 09/02/23 Event Note: She reports childhood vaccinations all,lived in [place]. Time Spent With Patient Time: Total time managing care of this patient today ____ minutes.
[2023-09-02] MEDS: ceFAZolin Sodium/Dextrose,Iso 2 GM/50 ML PIGGYBACK IV (17:09)
--- NOTE | 2023-09-02 19:10 | PC.NURSE ---
prn morphine given for 7/10 bilat leg pain.
[2023-09-02 20:00] VITALS: BP 109/56; PULSE 64; RESP 16; TEMP 36.4; O2SAT 95
[2023-09-02 22:56] VITALS: BP 118/71; PULSE 72; RESP 16; TEMP 36.8; O2SAT 96
[2023-09-02] MEDS: Melatonin 3 MG TABLET 6 MG PO (23:27)
[2023-09-02] MEDS: vancomycin HCL 1,250 MG in 0.9 % Sodium Chloride 250 ML 166.66 MG IV (23:31)
--- NOTE | 2023-09-03 | ECG_ITS ---
Test Reason : QTC CHECK Blood Pressure : / mmHG Vent. Rate : 064 BPM Atrial Rate : 064 BPM P-R Int : 158 ms QRS Dur : 104 ms QT Int : 466 ms P-R-T Axes : 057 037 009 degrees QTc Int : 480 ms Normal sinus rhythm with sinus arrhythmia Prolonged QT Abnormal ECG When compared with ECG of 01-SEP-2023 20:12, Vent. rate has decreased BY 32 BPM Criteria for Inferior infarct are no longer Present Referred By: Jeannie Donovan Electronically Signed By:Nathaniel Morgan
[2023-09-03] MEDS: ceFAZolin Sodium/Dextrose,Iso 2 GM/50 ML PIGGYBACK IV ×3 (02:27→17:20)
[2023-09-03] MEDS: 0.9 % Sodium Chloride Flush 3 ML SYRINGE IVFLUSH ×2 (02:31→21:04)
[2023-09-03 04:00] VITALS: BP 102/61; PULSE 63; RESP 16; TEMP 36.2; O2SAT 97
--- NOTE | 2023-09-03 07:00 | CA_ITS ---
Transthoracic Echocardiogram Patient (Last, First, Middle): Charlene Sanchez, Gender: Female Date of : 1990 Age: 33 Procedure Date: 09/03/2023 Procedure Type: Transthoracic Echocardiogram Location: S3E Height: 167.64 cm Weight: 88. kg BSA: 1.97 m2 Heart Rate: bpm BP: 102 / 94 mmHg Certified Medicine Aide: Referring MD: Jeannie GARCIA Symptoms: Bacteremia, eval for endocarditis Study Quality: Adequate ECG Rhythm: Sinus Conclusions: - Normal left ventricular size and systolic function. There is moderately increased left ventricular wall thickness. The visually estimated ejection fraction is between 55-60%. There is a flattened septum in systole and diastole consistent with right ventricular pressure and volume overload. Diastolic function is normal for age. - Moderately increased right ventricular cavity size. There is normal right ventricular systolic function. - Small vegetation noted on the tricuspid valve. Can not rule out leaflet perforation. - There is moderate to severe tricuspid valve regurgitation. Findings Left Ventricle Normal left ventricular size and systolic function. There is moderately increased left ventricular wall thickness. The visually estimated ejection fraction is between 55-60%. There is a flattened septum in systole and diastole consistent with right ventricular pressure and volume overload. Diastolic function is normal for age. Right Ventricle Moderately increased right ventricular cavity size. There is normal right ventricular systolic function. Atria The left atrium is normal in size. Aortic Valve Normal aortic valve structure and function. There is no aortic valve stenosis. There is no aortic valve regurgitation. Mitral Valve The mitral valve appears normal. There is no mitral valve regurgitation. There is no mitral valve stenosis. Pulmonic Valve The pulmonic valve is likely normal. Tricuspid Valve There is moderate to severe tricuspid valve regurgitation. Moderately elevated right atrial pressure. There is no evidence of pulmonary hypertension. Small vegetation noted on the tricuspid valve. Can not rule out leaflet perforation. Great Vessels All visible segments of the aorta are normal in size. Venous The inferior vena cava is dilated and collapses greater than 50% with inspiration. Pericardium/Pleural There is no evidence of pericardial effusion. Measurements 2D Linear Measurements IVSd: 1.39 0.6-0.9/0.6-1.0 cm LVIDd: 4.23 3.9-5.3/4.2-5.9 cm LVIDd Index: 2.15 2.4-3.2/2.2-3.1 cm/m2 LVIDs: 2.71 2.0-3.6 cm LVPWd: 1.35 0.7-1.1 cm Ao Root: 2.40 2.1-3.5 cm LA Diam: 4.10 2.7-3.8/3.0-4.0 cm LAIDs Index: 2.08 1.5-2.3 cm/m2 LV Mass: 273.44 67-162/88-224 g LV Mass Index: 138.80 43-95/49-115 g/m2 LVOT Diam: 2.10 3.0+(-)1.3 cm Mitral Valve MV Pk E: 0.97 MV PK A: 0.66 MV Decel Time: 316.00 E/A: 1.50 E'Lateral: 15.40 E'Medial: 10.10 E/E' Med: 9.60 E/E' Lat: 6.30 PHT: 93.00 MVA PHT: 2.37 Decel [place]: 3.06 Aortic Valve AoV Pk [place]: 1.58 AoV Mn [place]: 1.06 AoV VTI: 0.36 AoV Pk Grad: 10.00 Aov Mn Grad: 6.00 DANIS Cont.VTI: 2.52 LVOT LVOT Pk [place]: 1.22 LVOT Mn [place]: 0.75 LVOT VTI: 0.26 LVOT Pk Grad: 6.00 LVOT Mn Grad: 3.00 LVOT Diam: 2.10 LVOT Area: 3.46 Diastolic Function MV Pk E: 0.97 MV Pk A: 0.66 E/A: 1.50 E'Medial: 10.10 E/E' Med: 9.60 E' Laterial: 15.40 E/E' Lat: 6.30 Right Ventricle TAPSE (mm): 27.00 TVS' [place]: 16.00 Tricuspid Valve TR Pk [place]: 2.09 TR Pk Grad: 17.00 RA Press: 8.00 RVSP: 25.00 Great Vessels Aorta Ao Root-2D: 2.40 2.0-3.7 cm Ao Asc: 3.00 2.1-3.4 cm Pulmonary Valve PV Pk Elver: 1.41 Peak PV Grad: 8.00 Updated in Other Vendor System with Status of Final Nathaniel Morgan MD electronically signed on 09/03/2023 3:43:54 PM with status of Final
[2023-09-03 08:00] VITALS: BP 111/62; PULSE 63; RESP 16; TEMP 36.6; O2SAT 96
[2023-09-03 08:19] LABS: Hematocrit 26.9 % (37.0-47.0); Hemoglobin 8.5 g/dl (12.0-16.0); Mean Corpuscular HGB Conc 31.6 g/dl (31.0-35.0); Mean Corpuscular Hemoglobin 25.9 pg (27.0-33.0); Mean Platelet Volume 9.1 fL (9.4-12.3); Platelet Count 235 X10*3/uL (160-400); Red Blood Count 3.28 X10*6/uL (4.20-5.50); Red Cell Distribution Width 15.9 % (11.0-16.0); White Blood Count 9.9 X10*3/uL (4.8-10.8)
[2023-09-03 08:25] LABS: INTERNATIONAL NORM RATIO 1.2 (0.9-1.1); Prothrombin Time 14.1 SEC (11.1-13.3)
[2023-09-03 08:33] LABS: Vancomycin Random 20.2 mcg/mL (15-20)
[2023-09-03 08:33] LABS: Creatinine Clr Calc Pharmacy 112.9; Estimated Glomerular Filt Rate > 60
[2023-09-03] MEDS: Morphine Sulfate 4 MG/ML CARTRIDGE IVPUSH (10:08)
[2023-09-03] MEDS: Loratadine 10 MG TABLET PO (10:08)
[2023-09-03] MEDS: Enoxaparin Sodium 40 MG/0.4 ML SYRINGE SUBCUT (10:08)
--- NOTE | 2023-09-03 11:51 | HO.ADDICTPRO ---
Subjective Subjective Date of Service: 09/03/23 Reason For Visit: Fever Interim History: Patient seen in follow up. Tearful, reporting withdrawal sx and requesting methadone. T/W reinforced concerns related to reported history of QT prolongation and subsequent d/c of methadone. Patient clarified that she had been on methadone for 5 years (time she was in recovery) and was getting regular EKGs to monitor. She reports that she tolerated her dose well, and methadone was discontinued when a new provider took over her care and made the clinical decision to taper dose. During interview patient stating that she does not wish to leave the hospital, but she is not feeling well and needs withdrawal sx managed. Reporting feeling hot and cold, anxious, restless. Review of Systems Constitutional: Reports as per HPI Mental Status Exam Mental Status Exam Patient Appearance: Appropriate Level of Consciousness: Awake and Appropriate Patient Behavior: Anxious Diagnostics Vital Signs (24Hr): Vital Signs - 24 hr 09/02/23 20:00 09/02/23 22:56 09/03/23 04:00 Temperature 97.6 F 98.2 F 97.1 F Pulse Rate 64 72 63 Respiratory Rate 16 16 16 Blood Pressure 109/56 L 118/71 102/61 Pulse Oximetry 95 96 97 Oxygen Delivery Method Room Air Room Air Room Air 09/03/23 08:00 Temperature 97.8 F Pulse Rate 63 Respiratory Rate 16 Blood Pressure 111/62 Pulse Oximetry 96 Oxygen Delivery Method Room Air BMI result Body Mass Index 31.4 Labs 09/03/23 08:00 09/03/23 08:00 Labs: Laboratory Results - last 48 hr 09/01/23 09/01/23 09/01/23 21:39 21:41 21:53 WBC 7.6 RBC 3.93 L Hgb 10.2 L Hct 31.1 L MCV 79.1 L MCH 26.0 L MCHC 32.8 RDW 15.4 Plt Count 284 D MPV 9.0 L Immature Gran % (Auto) 1.2 H Neut % (Auto) 63.8 Lymph % (Auto) 24.3 [place] % (Auto) 9.3 Eos % (Auto) 1.0 Baso % (Auto) 0.4 Lymph # (Auto) 1.9 [place] # (Auto) 0.7 Eos # (Auto) 0.1 Baso # (Auto) 0.0 Abs Immat Gran (auto) 0.09 H Absolute Neuts (auto) 4.9 Absolute Nucleated RBC 0.000 Nucleated RBC % (auto) 0.0 ESR 92 H PT 16.8 H INR 1.4 H APTT 25.4 L VBG pH 7.49 H VBG pCO2 40 VBG pO2 46 VBG HCO3 31 H VBG O2 Saturation 74.0 VBG Base Excess 7.4 Sodium 134 L Potassium 3.0 L Chloride 97 Carbon Dioxide 28 Anion Gap 12 BUN 10 Creatinine 0.64 Estim Creat Clear Calc 141.1 Estimated GFR > 60 Random Glucose 108 Lactic Acid 0.9 Calcium 9.4 Magnesium 2.0 Iron TIBC % Saturation Unsat Iron Binding Total Bilirubin 0.7 Direct Bilirubin 0.3 AST 26 ALT 12 Alkaline Phosphatase 107 Total Creatine Kinase 78 Troponin I High Sens < 2.7 C-Reactive Protein 17.56 H B-Natriuretic Peptide 22 Total Protein 7.8 Albumin 3.2 L Beta HCG, Quant < 2 Urine Color Urine Appearance Urine pH Ur Specific [place] Urine Protein Urine Glucose (UA) Urine Ketones Urine Blood Urine Nitrite Ur Leukocyte Esterase Urine RBC Urine WBC Ur Squamous Epith Cells Urine Bacteria Hyaline Casts Granular Casts Random Vancomycin Urine Opiates Screen Urine Fentanyl Screen Ur Barbiturates Screen Ur Phencyclidine Scrn Ur Amphetamines Screen U Benzodiazepines Scrn Urine Cocaine Screen U Marijuana (THC) Screen Ethyl Alcohol < 10 Hepatitis A IgM Ab Hep Bs Antigen Hep Bs Antibody Hep B Core Total Ab Hepatitis C Ab (EIA) HIV 1&2 Ab/P24 Ag 4thGn Influenza Type A (PCR) NEGATIVE Influenza Type B (PCR) NEGATIVE RSV RNA Qual (PCR) NEGATIVE SARS-CoV-2 RNA (RT-PCR) NEGATIVE 09/02/23 09/02/23 09/02/23 02:47 02:47 02:47 WBC RBC Hgb Hct MCV MCH MCHC RDW Plt Count MPV Immature Gran % (Auto) Neut % (Auto) Lymph % (Auto) [place] % (Auto) Eos % (Auto) Baso % (Auto) Lymph # (Auto) [place] # (Auto) Eos # (Auto) Baso # (Auto) Abs Immat Gran (auto) Absolute Neuts (auto) Absolute Nucleated RBC Nucleated RBC % (auto) ESR PT INR APTT VBG pH VBG pCO2 VBG pO2 VBG HCO3 VBG O2 Saturation VBG Base Excess Sodium Potassium Chloride Carbon Dioxide Anion Gap BUN Creatinine Estim Creat Clear Calc Estimated GFR Random Glucose Lactic Acid Calcium Magnesium Iron TIBC % Saturation Unsat Iron Binding Total Bilirubin Direct Bilirubin AST ALT Alkaline Phosphatase Total Creatine Kinase Troponin I High Sens C-Reactive Protein B-Natriuretic Peptide Total Protein Albumin Beta HCG, Quant Urine Color Cancelled Yellow Urine Appearance Cancelled Clear Urine pH Cancelled Ur Specific [place] Urine Protein Urine Glucose (UA) Urine Ketones Urine Blood Urine Nitrite Ur Leukocyte Esterase Urine RBC Urine WBC Ur Squamous Epith Cells Urine Bacteria Hyaline Casts Granular Casts Random Vancomycin Urine Opiates Screen Urine Fentanyl Screen Ur Barbiturates Screen Ur Phencyclidine Scrn Ur Amphetamines Screen U Benzodiazepines Scrn Urine Cocaine Screen U Marijuana (THC) Screen Ethyl Alcohol Hepatitis A IgM Ab Hep Bs Antigen Hep Bs Antibody Hep B Core Total Ab Hepatitis C Ab (EIA) HIV 1&2 Ab/P24 Ag 4thGn Influenza Type A (PCR) Influenza Type B (PCR) RSV RNA Qual (PCR) SARS-CoV-2 RNA (RT-PCR) 09/02/23 09/02/23 09/02/23 02:47 02:47 02:47 WBC RBC Hgb Hct MCV MCH MCHC RDW Plt Count MPV Immature Gran % (Auto) Neut % (Auto) Lymph % (Auto) [place] % (Auto) Eos % (Auto) Baso % (Auto) Lymph # (Auto) [place] # (Auto) Eos # (Auto) Baso # (Auto) Abs Immat Gran (auto) Absolute Neuts (auto) Absolute Nucleated RBC Nucleated RBC % (auto) ESR PT INR APTT VBG pH VBG pCO2 VBG pO2 VBG HCO3 VBG O2 Saturation VBG Base Excess Sodium Potassium Chloride Carbon Dioxide Anion Gap BUN Creatinine Estim Creat Clear Calc Estimated GFR Random Glucose Lactic Acid Calcium Magnesium Iron TIBC % Saturation Unsat Iron Binding Total Bilirubin Direct Bilirubin AST ALT Alkaline Phosphatase Total Creatine Kinase Troponin I High Sens C-Reactive Protein B-Natriuretic Peptide Total Protein Albumin Beta HCG, Quant Urine Color Urine Appearance Urine pH 6.0 Ur Specific [place] Cancelled 1.025 Urine Protein Cancelled Trace Urine Glucose (UA) Cancelled Urine Ketones Urine Blood Urine Nitrite Ur Leukocyte Esterase Urine RBC Urine WBC Ur Squamous Epith Cells Urine Bacteria Hyaline Casts Granular Casts Random Vancomycin Urine Opiates Screen Urine Fentanyl Screen Ur Barbiturates Screen Ur Phencyclidine Scrn Ur Amphetamines Screen U Benzodiazepines Scrn Urine Cocaine Screen U Marijuana (THC) Screen Ethyl Alcohol Hepatitis A IgM Ab Hep Bs Antigen Hep Bs Antibody Hep B Core Total Ab Hepatitis C Ab (EIA) HIV 1&2 Ab/P24 Ag 4thGn Influenza Type A (PCR) Influenza Type B (PCR) RSV RNA Qual (PCR) SARS-CoV-2 RNA (RT-PCR) 09/02/23 09/02/23 09/02/23 02:47 02:47 02:47 WBC RBC Hgb Hct MCV MCH MCHC RDW Plt Count MPV Immature Gran % (Auto) Neut % (Auto) Lymph % (Auto) [place] % (Auto) Eos % (Auto) Baso % (Auto) Lymph # (Auto) [place] # (Auto) Eos # (Auto) Baso # (Auto) Abs Immat Gran (auto) Absolute Neuts (auto) Absolute Nucleated RBC Nucleated RBC % (auto) ESR PT INR APTT VBG pH VBG pCO2 VBG pO2 VBG HCO3 VBG O2 Saturation VBG Base Excess Sodium Potassium Chloride Carbon Dioxide Anion Gap BUN Creatinine Estim Creat Clear Calc Estimated GFR Random Glucose Lactic Acid Calcium Magnesium Iron TIBC % Saturation Unsat Iron Binding Total Bilirubin Direct Bilirubin AST ALT Alkaline Phosphatase Total Creatine Kinase Troponin I High Sens C-Reactive Protein B-Natriuretic Peptide Total Protein Albumin Beta HCG, Quant Urine Color Urine Appearance Urine pH Ur Specific [place] Urine Protein Urine Glucose (UA) Negative Urine Ketones Cancelled Negative Urine Blood Cancelled Large (3+) H Urine Nitrite Cancelled Ur Leukocyte Esterase Urine RBC Urine WBC Ur Squamous Epith Cells Urine Bacteria Hyaline Casts Granular Casts Random Vancomycin Urine Opiates Screen Urine Fentanyl Screen Ur Barbiturates Screen Ur Phencyclidine Scrn Ur Amphetamines Screen U Benzodiazepines Scrn Urine Cocaine Screen U Marijuana (THC) Screen Ethyl Alcohol Hepatitis A IgM Ab Hep Bs Antigen Hep Bs Antibody Hep B Core Total Ab Hepatitis C Ab (EIA) HIV 1&2 Ab/P24 Ag 4thGn Influenza Type A (PCR) Influenza Type B (PCR) RSV RNA Qual (PCR) SARS-CoV-2 RNA (RT-PCR) 09/02/23 09/02/23 09/02/23 02:47 02:47 07:31 WBC 10.0 RBC 3.67 L Hgb 9.5 L Hct 29.8 L MCV 81.2 MCH 25.9 L MCHC 31.9 RDW 15.7 Plt Count 290 MPV 9.4 Immature Gran % (Auto) 1.6 H Neut % (Auto) 60.0 Lymph % (Auto) 28.0 [place] % (Auto) 8.6 Eos % (Auto) 1.2 Baso % (Auto) 0.6 Lymph # (Auto) 2.8 [place] # (Auto) 0.9 Eos # (Auto) 0.1 Baso # (Auto) 0.1 Abs Immat Gran (auto) 0.16 H Absolute Neuts (auto) 6.0 Absolute Nucleated RBC 0.000 Nucleated RBC % (auto) 0.0 ESR PT INR APTT VBG pH VBG pCO2 VBG pO2 VBG HCO3 VBG O2 Saturation VBG Base Excess Sodium 138 Potassium 3.5 Chloride 101 Carbon Dioxide 29 Anion Gap 12 BUN 13 Creatinine 0.82 Estim Creat Clear Calc Estimated GFR Random Glucose Lactic Acid Calcium Magnesium Iron TIBC % Saturation Unsat Iron Binding Total Bilirubin Direct Bilirubin AST ALT Alkaline Phosphatase Total Creatine Kinase Troponin I High Sens C-Reactive Protein B-Natriuretic Peptide Total Protein Albumin Beta HCG, Quant Urine Color Urine Appearance Urine pH Ur Specific [place] Urine Protein Urine Glucose (UA) Urine Ketones Urine Blood Urine Nitrite Negative Ur Leukocyte Esterase Cancelled Trace H Urine RBC 11-20 H Urine WBC 11-20 H Ur Squamous Epith Cells 3-5 Urine Bacteria 2+ Hyaline Casts 0-2 Granular Casts Present Random Vancomycin Urine Opiates Screen POSITIVE H Urine Fentanyl Screen POSITIVE H Ur Barbiturates Screen Not Detected Ur Phencyclidine Scrn Not Detected Ur Amphetamines Screen Not Detected U Benzodiazepines Scrn Not Detected Urine Cocaine Screen POSITIVE H U Marijuana (THC) Screen POSITIVE H Ethyl Alcohol Hepatitis A IgM Ab Hep Bs Antigen Hep Bs Antibody Hep B Core Total Ab Hepatitis C Ab (EIA) HIV 1&2 Ab/P24 Ag 4thGn Influenza Type A (PCR) Influenza Type B (PCR) RSV RNA Qual (PCR) SARS-CoV-2 RNA (RT-PCR) 09/02/23 09/02/23 09/02/23 07:31 07:31 07:31 WBC RBC Hgb Hct MCV MCH MCHC RDW Plt Count MPV Immature Gran % (Auto) Neut % (Auto) Lymph % (Auto) [place] % (Auto) Eos % (Auto) Baso % (Auto) Lymph # (Auto) [place] # (Auto) Eos # (Auto) Baso # (Auto) Abs Immat Gran (auto) Absolute Neuts (auto) Absolute Nucleated RBC Nucleated RBC % (auto) ESR PT INR APTT VBG pH VBG pCO2 VBG pO2 VBG HCO3 VBG O2 Saturation VBG Base Excess Sodium Potassium Chloride Carbon Dioxide Anion Gap BUN Creatinine Cancelled Estim Creat Clear Calc 110.2 Cancelled Estimated GFR > 60 Cancelled Random Glucose 103 Lactic Acid Calcium 9.0 Magnesium Iron 40 TIBC 167 L % Saturation 24 Unsat Iron Binding 127 Total Bilirubin Direct Bilirubin AST ALT Alkaline Phosphatase Total Creatine Kinase Troponin I High Sens C-Reactive Protein B-Natriuretic Peptide Total Protein Albumin Beta HCG, Quant Urine Color Urine Appearance Urine pH Ur Specific [place] Urine Protein Urine Glucose (UA) Urine Ketones Urine Blood Urine Nitrite Ur Leukocyte Esterase Urine RBC Urine WBC Ur Squamous Epith Cells Urine Bacteria Hyaline Casts Granular Casts Random Vancomycin Urine Opiates Screen Urine Fentanyl Screen Ur Barbiturates Screen Ur Phencyclidine Scrn Ur Amphetamines Screen U Benzodiazepines Scrn Urine Cocaine Screen U Marijuana (THC) Screen Ethyl Alcohol Hepatitis A IgM Ab Hep Bs Antigen Hep Bs Antibody Hep B Core Total Ab Hepatitis C Ab (EIA) HIV 1&2 Ab/P24 Ag 4thGn Influenza Type A (PCR) Influenza Type B (PCR) RSV RNA Qual (PCR) SARS-CoV-2 RNA (RT-PCR) 09/02/23 09/03/23 09/03/23 11:00 08:00 08:03 WBC 9.9 RBC 3.28 L Hgb 8.5 L Hct 26.9 L MCV 82.0 MCH 25.9 L MCHC 31.6 RDW 15.9 Plt Count 235 MPV 9.1 L Immature Gran % (Auto) Neut % (Auto) Lymph % (Auto) [place] % (Auto) Eos % (Auto) Baso % (Auto) Lymph # (Auto) [place] # (Auto) Eos # (Auto) Baso # (Auto) Abs Immat Gran (auto) Absolute Neuts (auto) Absolute Nucleated RBC 0.000 Nucleated RBC % (auto) 0.0 ESR PT 14.1 H INR 1.2 H APTT VBG pH VBG pCO2 VBG pO2 VBG HCO3 VBG O2 Saturation VBG Base Excess Sodium Potassium Chloride Carbon Dioxide Anion Gap BUN Creatinine 0.80 Estim Creat Clear Calc 112.9 Estimated GFR > 60 Random Glucose Lactic Acid Calcium Magnesium Iron TIBC % Saturation Unsat Iron Binding Total Bilirubin Direct Bilirubin AST ALT Alkaline Phosphatase Total Creatine Kinase 46 Troponin I High Sens C-Reactive Protein B-Natriuretic Peptide Total Protein Albumin Beta HCG, Quant Urine Color Urine Appearance Urine pH Ur Specific [place] Urine Protein Urine Glucose (UA) Urine Ketones Urine Blood Urine Nitrite Ur Leukocyte Esterase Urine RBC Urine WBC Ur Squamous Epith Cells Urine Bacteria Hyaline Casts Granular Casts Random Vancomycin 20.2 H Urine Opiates Screen Urine Fentanyl Screen Ur Barbiturates Screen Ur Phencyclidine Scrn Ur Amphetamines Screen U Benzodiazepines Scrn Urine Cocaine Screen U Marijuana (THC) Screen Ethyl Alcohol Hepatitis A IgM Ab Nonreactive Hep Bs Antigen Negative Hep Bs Antibody REACTIVE Hep B Core Total Ab Nonreactive Hepatitis C Ab (EIA) Nonreactive HIV 1&2 Ab/P24 Ag 4thGn Nonreactive Influenza Type A (PCR) Influenza Type B (PCR) RSV RNA Qual (PCR) SARS-CoV-2 RNA (RT-PCR) Imaging Radiology Impressions: ITS Impressions Chest X-Ray 09/01/23 21:55 IMPRESSION: Unremarkable chest examination. Ankle X-Ray 09/02/23 00:34 IMPRESSION: Mild soft tissue swelling without fracture. Ankle X-Ray 09/02/23 00:34 IMPRESSION: Mild soft tissue swelling without fracture. Medications Medications Current Medications Acetaminophen (Acetaminophen 325 Mg Tablet) 650 mg PO Q6H PRN PRN Reason: Pain, Mild (Pain Scale 1-3) Last Admin: 09/02/23 10:03 Dose: 650 mg Enoxaparin Sodium (Enoxaparin Sodium 40 Mg/0.4 Ml Syringe) 40 mg SUBCUT Q24H [facility] Last Admin: 09/03/23 10:08 Dose: 40 mg Cefazolin Sodium/Dextrose (Ancef) 2 gm in 50 mls @ 100 mls/hr IV Q8H [facility] Last Infusion: 09/03/23 11:14 Dose: Infused Vancomycin HCl 1,000 mg/ (Sodium Chloride) 270 mls @ 270 mls/hr IV Q12H [facility] Loratadine (Loratadine 10 Mg Tablet) 10 mg PO DAILY [facility] Last Admin: 09/03/23 10:08 Dose: 10 mg Melatonin (Melatonin 3 Mg Tablet) 6 mg PO BEDTIME PRN PRN Reason: Insomnia Last Admin: 09/02/23 23:27 Dose: 6 mg Nicotine Polacrilex (Nicotine Polacrilex 2 Mg Gum) 2 mg BUCCAL Q2H PRN PRN Reason: Nicotine Cravings Last Admin: 09/02/23 00:59 Dose: 2 mg Ondansetron HCl (Ondansetron Hcl 4 Mg/2 Ml Vial) 4 mg IVPUSH Q8H PRN PRN Reason: Nausea and Vomiting Oxycodone HCl (Oxycodone Hcl Immed Release 5 Mg Tablet) 5 mg PO Q4H PRN PRN Reason: Pain, Moderate(Pain Scale 4-6) Pharmacy Consult (Consult Rx Vancomycin Dosing) 1 each MISCELLANE DAILY PRN PRN Reason: Consult order Sodium Chloride (0.9 % Sodium Chloride Flush 3 Ml Syringe) 3 ml IVFLUSH QSHIFT DARIUSZ Last Admin: 09/03/23 09:58 Dose: Not Given Triamcinolone Acetonide (Triamcinolone Acet 0.1 % Cream 15 Gm Tube) 1 appl TOPICAL BID DARIUSZ; Protocol Last Admin: 09/03/23 10:20 Dose: Not Given Allergies Allergies Allergy/AdvReac Type Severity Reaction Status Date / Time latex Allergy Hives Verified 09/03/23 02:05 Sulfa (Sulfonamide Allergy Hives Verified 10/09/21 18:04 Antibiotics) Assessment & Plan Assessment & Plan (1) Opioid use disorder: Status: Acute Code(s): F11.90 - Opioid use, unspecified, uncomplicated Assessment and Plan: patient unsure if she wishes to continue MOUD following hospitalization methadone 30mg in AM will continue to follow (2) Opioid withdrawal: Status: Acute Code(s): F11.93 - Opioid use, unspecified with withdrawal Assessment and Plan: methadone 20mg + 10mg (following EKG review) clonidine BID Total time managing care of this patient today _40___ minutes.
[2023-09-03] MEDS: methADONE HCl 20 MG/2 ML ORAL.CONC PO (12:00)
--- NOTE | 2023-09-03 14:17 | MHC.RECOVRN ---
Met with pt to follow up after receiving 20 mg methadone at 1200. Pt sitting in bed, awake, alert, easily engages in conversation, tearful. Pt reporting persistent withdrawal symptoms including nausea, diaphoresis, body aches. States I want to crawl out of my skin. Pt agreeable to comfort medications in addition to full agonists. Pt denies questions or concerns for t/w. Discussed with Karla Robbins APRN.
[2023-09-03] MEDS: vancomycin HCL 1,000 MG in 0.9 % Sodium Chloride 250 ML 270 MG IV (14:47)
[2023-09-03] MEDS: oxyCODONE HCl Immed Release 5 MG TABLET PO (14:47)
[2023-09-03] MEDS: cloNIDine HCL 0.1 MG TABLET PO ×2 (14:47→21:03)
--- NOTE | 2023-09-03 14:54 | HO.PM.IMPN ---
Subjective Subjective Date of Service: 09/03/23 Interval History: seen and examined this morning follow up for rash patient reports significant improvement with pain and swelling in legs she has remained afebrile Review of Systems Review of Systems: Yes all other systems are reviewed and are negative Constitutional Constitutional: Denies chills and Denies fever(s) Cardiovascular Cardiovascular: Denies chest pain and Denies dyspnea Respiratory Respiratory: Denies cough and Denies dyspnea Gastrointestinal Gastrointestinal: Denies abdominal pain Physical Exam Vital Signs: Vital Signs: Last Vital Signs Temp 97.8 F 09/03/23 08:00 Pulse 63 09/03/23 08:00 Resp 16 09/03/23 08:00 BP 111/62 09/03/23 08:00 Pulse Ox 96 09/03/23 08:00 O2 Del Method Room Air 09/03/23 08:00 BMI result Body Mass Index 31.4 Const: General: comfortable, no acute distress, alert and awake Nutritional Appearance: average body habitus Orientation/consciousness: patient oriented x3 Resp: Effort & Inspection: normal respiratory effort, able to speak in complete sentences, no respiratory distress and no use of accessory muscles Cardio: Rate: regular rate GI: Inspection: No distended Palpation (GI): Soft to palpation and nontender Skin: Other: Neuro: General: patient oriented x3, moves all extremities and CN's II-XI intact bilaterally Objective Data Active Medications Acetaminophen (Acetaminophen 325 Mg Tablet) 650 mg PO Q6H PRN PRN Reason: Pain, Mild (Pain Scale 1-3) Last Admin: 09/02/23 10:03 Dose: 650 mg Documented By: TORSTEN Clonidine HCl (Clonidine Hcl 0.1 Mg Tablet) 0.1 mg PO BID [facility]; Protocol Last Admin: 09/03/23 14:47 Dose: 0.1 mg Documented By: RUDDY Enoxaparin Sodium (Enoxaparin Sodium 40 Mg/0.4 Ml Syringe) 40 mg SUBCUT Q24H [facility] Last Admin: 09/03/23 10:08 Dose: 40 mg Documented By: RUDDY Cefazolin Sodium/Dextrose (Ancef) 2 gm in 50 mls @ 100 mls/hr IV Q8H [facility] Last Infusion: 09/03/23 11:14 Dose: Infused Documented By: RUDDY Vancomycin HCl 1,000 mg/ (Sodium Chloride) 270 mls @ 270 mls/hr IV Q12H [facility] Last Admin: 09/03/23 14:47 Dose: 270 mls/hr Documented By: RUDDY Loratadine (Loratadine 10 Mg Tablet) 10 mg PO DAILY [facility] Last Admin: 09/03/23 10:08 Dose: 10 mg Documented By: RUDDY Melatonin (Melatonin 3 Mg Tablet) 6 mg PO BEDTIME PRN PRN Reason: Insomnia Last Admin: 09/02/23 23:27 Dose: 6 mg Documented By: ARI Methadone HCl (Methadone Hcl 20 Mg/2 Ml Oral.Conc) 10 mg PO ONCE ONE Stop: 09/03/23 16:01 Morphine Sulfate (Morphine Sulfate 2 Mg/Ml Cartridge) 2 mg IVPUSH Q4H PRN; Protocol PRN Reason: Pain, Severe (Pain Scale 7-10) Nicotine Polacrilex (Nicotine Polacrilex 2 Mg Gum) 2 mg BUCCAL Q2H PRN PRN Reason: Nicotine Cravings Last Admin: 09/02/23 00:59 Dose: 2 mg Documented By: SORIN Ondansetron HCl (Ondansetron Hcl 4 Mg/2 Ml Vial) 4 mg IVPUSH Q8H PRN PRN Reason: Nausea and Vomiting Oxycodone HCl (Oxycodone Hcl Immed Release 5 Mg Tablet) 5 mg PO Q4H PRN PRN Reason: Pain, Moderate(Pain Scale 4-6) Last Admin: 09/03/23 14:47 Dose: 5 mg Documented By: RUDDY Pharmacy Consult (Consult Rx Vancomycin Dosing) 1 each MISCELLANE DAILY PRN PRN Reason: Consult order Sodium Chloride (0.9 % Sodium Chloride Flush 3 Ml Syringe) 3 ml IVFLUSH QSHIFT [facility] Last Admin: 09/03/23 09:58 Dose: Not Given Documented By: RUDDY Non-Admin Reason: Previously Administered Triamcinolone Acetonide (Triamcinolone Acet 0.1 % Cream 15 Gm Tube) 1 appl TOPICAL BID [facility]; Protocol Last Admin: 09/03/23 10:20 Dose: Not Given Documented By: RUDDY Non-Admin Reason: Previously Administered Labs 09/03/23 08:00 09/03/23 08:00 Labs: Laboratory Results - last 24 hr 09/03/23 09/03/23 08:00 08:03 MCV 82.0 MCH 25.9 L MCHC 31.6 RDW 15.9 Plt Count 235 MPV 9.1 L Absolute Nucleated RBC 0.000 Nucleated RBC % (auto) 0.0 PT 14.1 H INR 1.2 H Estim Creat Clear Calc 112.9 Estimated GFR > 60 Random Vancomycin 20.2 H Microbiology Microbiology Results: Microbiology 09/01/23 21:38 Blood Culture - Preliminary Blood - Venous No growth after 24 hours. 09/01/23 21:39 Blood Culture - Preliminary Blood - Venous No growth after 24 hours. Assessment and Plan (1) Active intravenous drug use: Status: Acute (2) Small vessel vasculitis: Status: Acute (3) Tricuspid regurgitation: Status: Acute Plan This is a 33-year-old female with pertinent history of IVDU who presents to the emergency department for evaluation of fever and rash. Bilateral lower extremity painful rash due to small vessel vasculitis pain resolved, rash improving ESR, CRP elevated, hepatitis screen and HIV negative, compliment, JOSE M and ANCA vasculitides pending po prednisone, will need prednisone taper upon discharge outpatient follow up with rheumatology tricuspid valve vegetation echo showing small vegetation on the tricuspid valve and moderate to severe tricuspid regurgitation blood cultures negative at 24 hours - if blood cultures remain negative ?old infection no evidence of heart failure at this time Substance use disorder: seen by addiction medicine, started on methadone, follow QTc Microcytic anemia: H/H trending down, but still above transfusion threshold pt reports chronic anemia, but unsure of baseline H/H follow CBC Hypokalemia: resolved with replacement DVT prophylaxis: Merex Full code Admit as inpatient and will require two night minimum hospital stay for close monitoring of rash in a patient with IVDU, IV antibiotics (as above), which is not possible in a lesser acute setting. Quality Stroke Does the patient have a stroke diagnosis?: No VTE Prior VTE?: No VTE Risk Level:: Medical - moderate - high VTE Device Contraindication: Treatment Not Indicated VTE Drug Contraindication: N/A - Med Ordered
[2023-09-03] MEDS: methADONE HCl 20 MG/2 ML ORAL.CONC 10 MG PO (15:21)
--- NOTE | 2023-09-03 15:39 | MHC.CM.PN ---
PT INDEPENDENT AT BASELINE NO DME AND NO SERVICES NO PCP DECLINES TO COMPLETE HCP DCP TBD PENDING NEED FOR IV ABX HOME VS STR
[2023-09-03 15:43] VITALS: BP 137/81; PULSE 68; RESP 18; TEMP 36.4; O2SAT 96
--- NOTE | 2023-09-03 15:57 | MHC.RECOVRN ---
Met with pt to follow up after additional 10 mg methadone and 5 mg oxycodone. Pt sitting in bed, awake, alert, easily engages in conversation, much brighter affect. Pt reports desire to discharge, reports she just wants to go home. Discussed MOUD continuation, pt does not want to continue methadone/connect to OTP. Pt interested in buprenorphine, discussed microinduction and the [facility]. Also discussed injectable bup, which pt expressed interest in. Pt reports she will discuss with partner, encouraged pt to call [facility] to make appt or present as walk in. Pt denies questions or concerns for t/w. Discussed with Karla Robbins APRN.
[2023-09-03] MEDS: predniSONE 20 MG TABLET 40 MG PO (17:19)
--- NOTE | 2023-09-03 19:18 | PC.NURSE ---
Addendum entered by Autumn Hahn RN 09/03/23 19:21: Per ID's recommendation patient was taken off airborne/droplet precautions, infection control notified Original Note: Patient complaining that she is not feeling good and would like to go home, provider notified and patient advised that the test are pending and it is important to wait for the results. Patient was medicated with methadone and agreed to stay for the result. Patient also refusing bed alarm, video monitoring in place, patient advised to call for help when getting out of bed.
[2023-09-03 19:40] VITALS: BP 115/60; PULSE 59; RESP 16; TEMP 36; O2SAT 95
--- NOTE | 2023-09-03 22:09 | P.PNID_ITS ---
Subjective Subjective Date of Service: 09/03/23 Critical Care Time (minutes): 15 Comment: She feels much better and wants to leave Objective Data Labs 09/03/23 08:00 09/03/23 08:00 Labs: Laboratory Results - last 24 hr 09/03/23 09/03/23 08:00 08:03 WBC 9.9 RBC 3.28 L Hgb 8.5 L Hct 26.9 L MCV 82.0 MCH 25.9 L MCHC 31.6 RDW 15.9 Plt Count 235 MPV 9.1 L Absolute Nucleated RBC 0.000 Nucleated RBC % (auto) 0.0 PT 14.1 H INR 1.2 H Creatinine 0.80 Estim Creat Clear Calc 112.9 Estimated GFR > 60 Random Vancomycin 20.2 H Microbiology Microbiology Results: Microbiology 09/01/23 21:38 Blood - Venous Blood Culture - Preliminary No growth after 24 hours. 09/01/23 21:39 Blood - Venous Blood Culture - Preliminary No growth after 24 hours. Physical Exam 2 Vital Signs: Vital Signs: Last Vital Signs Temp 96.8 F 09/03/23 19:40 Pulse 59 09/03/23 19:40 Resp 16 09/03/23 19:40 BP 115/60 09/03/23 19:40 Pulse Ox 95 09/03/23 19:40 O2 Del Method Room Air 09/03/23 19:40 BMI result Body Mass Index 31.4 Const: General: cooperative HEENT: Head: Yes normal to inspection Face and sinus: Yes normal facial exam Mouth: Normal oral and palatal mucosa present Teeth and gingiva: d entition normal Eyes: General: appearance normal, both eyes and all related structures P upils: Equal, round and reactive pupils present Resp: Effort & Inspection: normal respiratory effort Cardio: Rate: regular rate Rhythm: regular rhythm GI: Palpation (GI): Soft to palpation and nontender : General: Yes no CVA tenderness Back/Spine/Pelvis: Back: no CVA tenderness Skin: General skin exam: no rashes or lesions noted Neuro: General: moves all extremities Cranial nerves: Yes Equal, round and reactive pupils present Extrem: Other: much improved redness legs General: Yes normal to inspection Psych: Appearance: grossly normal Assessment and Plan Assessment and plan (1) Small vessel vasculitis: Problem details: She has vasculitis on punch biopsy She also has right sided vegetation ?age,maybe old from MSSA sepsis in January,blood cultures negative now Status: Acute Plan Continue Kefzol, as had MSSA in past. Stop Vancomycin blood cultures negative. If endocarditis felt to be new or indeterminate age by Cardiology inpatient rehab for four weeks Kefzol. Steroids treat vasculitis,may be related to lupus like syndrome from old untreated endocarditis. Time Spent With Patient Time: Total time managing care of this patient today ____ minutes.
--- NOTE | 2023-09-03 22:17 | PM.EVENT ---
Event Note Date of Service: 09/03/23 Event Note: stop isolation no meningococcus seen and measles suspicion low Time Spent With Patient Time: Total time managing care of this patient today ____ minutes.
[2023-09-04] MEDS: ceFAZolin Sodium/Dextrose,Iso 2 GM/50 ML PIGGYBACK IV ×2 (01:51→10:21)
[2023-09-04 03:05] VITALS: BP 114/57; PULSE 46; RESP 16; TEMP 36.3; O2SAT 98
[2023-09-04] MEDS: methADONE HCl 20 MG/2 ML ORAL.CONC 30 MG PO (06:44)
[2023-09-04] MEDS: cloNIDine HCL 0.1 MG TABLET PO (06:44)
[2023-09-04 07:39] LABS: Hematocrit 28.4 % (37.0-47.0); Mean Corpuscular HGB Conc 31.7 g/dl (31.0-35.0); Mean Corpuscular Hemoglobin 26.4 pg (27.0-33.0); Mean Corpuscular Volume 83.3 fL (80.0-98.0); Mean Platelet Volume 9.9 fL (9.4-12.3); Platelet Count 261 X10*3/uL (160-400); Red Blood Count 3.41 X10*6/uL (4.20-5.50); Red Cell Distribution Width 15.8 % (11.0-16.0); White Blood Count 12.8 X10*3/uL (4.8-10.8)
[2023-09-04 07:40] VITALS: BP 142/72; PULSE 49; RESP 18; TEMP 36; O2SAT 98
[2023-09-04 08:19] LABS: Creatinine Clr Calc Pharmacy 123.8; Estimated Glomerular Filt Rate > 60
[2023-09-04] MEDS: predniSONE 20 MG TABLET 40 MG PO (10:20)
[2023-09-04] MEDS: Loratadine 10 MG TABLET PO (10:20)
[2023-09-04] MEDS: Enoxaparin Sodium 40 MG/0.4 ML SYRINGE SUBCUT (10:20)
[2023-09-04] MEDS: 0.9 % Sodium Chloride Flush 3 ML SYRINGE IVFLUSH (10:28)
--- NOTE | 2023-09-04 12:07 | P.CONCA_ITS ---
History of Present Illness History of Present Illness Date of Service: 09/04/23 Requesting physician: Krystyna Jasso Chief complaint: Fever, ?endocarditis Narrative: [age] year female with background history of IV drug use presenting for rash on the legs which has been diagnosed as vasculitis. She has been using IV drugs including cocaine, fentanyl and opiates. She said she was clean for some time but given significant stress in her life she went back to drugs. She was here a year ago with staph bacteremia but left AMA. She never had any echocardiography in the past. She had echocardiography performed on this admission which showed normal left ventricular function with flattening of the septum in systole and diastole pointing to a right ventricular pressure volume overload. Moderately increased right ventricular cavity size but normal RV function. Moderate to severe tricuspid valve regurgitation was noted. A small mobile density was noted on the tricuspid valve and vegetation can not be ruled out. Also the valve looked as if it has been structurally damaged before and a valve leaflet perforation could not be ruled out. The patient had some fevers and was not feeling well few days before presentation and started taking doxycycline on her own. Her blood cultures here are negative. She has been treated for vasculitis and overall is feeling better. [facility] Past Medical History Medical History Active intravenous drug use No known health problems Family History Family history: reviewed and not pertinent Social History Social History Household Members: Significant Other Household Members Other:: boyfriend. Housing: Apartment Do you presently have visiting nurse or other home services: No Alcohol intake: former Patient Tobacco Use Status: Current everyday Tobacco user Tobacco use type: Cigarette Cigarettes Per Day: 0.5 e-Cigarette/Vaping Use: Never Used Substance Use Type: Crack/Cocaine and Opiates service: No Meds Allergies Allergy/AdvReac Type Severity Reaction Status Date / Time latex Allergy Hives Verified 09/03/23 02:05 Sulfa (Sulfonamide Allergy Hives Verified 10/09/21 18:04 Antibiotics) Active Medications: Current Medications Acetaminophen (Acetaminophen 325 Mg Tablet) 650 mg PO Q6H PRN PRN Reason: Pain, Mild (Pain Scale 1-3) Last Admin: 09/02/23 10:03 Dose: 650 mg Clonidine HCl (Clonidine Hcl 0.1 Mg Tablet) 0.1 mg PO BID [facility]; Protocol Last Admin: 09/04/23 06:44 Dose: 0.1 mg Enoxaparin Sodium (Enoxaparin Sodium 40 Mg/0.4 Ml Syringe) 40 mg SUBCUT Q24H [facility] Last Admin: 09/04/23 10:20 Dose: 40 mg Cefazolin Sodium/Dextrose (Ancef) 2 gm in 50 mls @ 100 mls/hr IV Q8H [facility] Last Infusion: 09/04/23 11:07 Dose: Infused Loratadine (Loratadine 10 Mg Tablet) 10 mg PO DAILY [facility] Last Admin: 09/04/23 10:20 Dose: 10 mg Melatonin (Melatonin 3 Mg Tablet) 6 mg PO BEDTIME PRN PRN Reason: Insomnia Last Admin: 09/02/23 23:27 Dose: 6 mg Methadone HCl (Methadone Hcl 20 Mg/2 Ml Oral.Conc) 30 mg PO DAILY [facility] Last Admin: 09/04/23 06:44 Dose: 30 mg Morphine Sulfate (Morphine Sulfate 2 Mg/Ml Cartridge) 2 mg IVPUSH Q4H PRN; Protocol PRN Reason: Pain, Severe (Pain Scale 7-10) Nicotine Polacrilex (Nicotine Polacrilex 2 Mg Gum) 2 mg BUCCAL Q2H PRN PRN Reason: Nicotine Cravings Last Admin: 09/02/23 00:59 Dose: 2 mg Ondansetron HCl (Ondansetron Hcl 4 Mg/2 Ml Vial) 4 mg IVPUSH Q8H PRN PRN Reason: Nausea and Vomiting Oxycodone HCl (Oxycodone Hcl Immed Release 5 Mg Tablet) 5 mg PO Q4H PRN PRN Reason: Pain, Moderate(Pain Scale 4-6) Last Admin: 09/03/23 14:47 Dose: 5 mg Prednisone (Prednisone 20 Mg Tablet) 40 mg PO DAILY [facility] Last Admin: 09/04/23 10:20 Dose: 40 mg Sodium Chloride (0.9 % Sodium Chloride Flush 3 Ml Syringe) 3 ml IVFLUSH QSHIFT [facility] Last Admin: 09/04/23 10:28 Dose: 3 ml Triamcinolone Acetonide (Triamcinolone Acet 0.1 % Cream 15 Gm Tube) 1 appl TOPICAL BID [facility]; Protocol Last Admin: 09/04/23 10:28 Dose: Not Given Physical Exam 2 Vital Signs: Vital Signs: Last Vital Signs Temp 96.8 F 09/04/23 07:40 Pulse 49 L 09/04/23 07:40 Resp 18 09/04/23 07:40 BP 142/72 H 09/04/23 07:40 Pulse Ox 98 09/04/23 07:40 O2 Del Method Room Air 09/04/23 07:40 BMI result Body Mass Index 31.4 GENERAL APPEARANCE: in no acute distress, pleasant. NECK: no carotid bruit, no jugular venous distention. SKIN: Vasculitic rash on the legs. HEART: no murmurs, regular rate and rhythm. LUNGS: clear to auscultation bilaterally. ABDOMEN: soft, nontender. EXTREMITIES: no edema. PERIPHERAL PULSES: equal. NEUROLOGIC: No gross deficits, AAO X 3 Objective Labs and Meds 09/04/23 06:02 09/04/23 06:02 Lab results: Laboratory Results - last 24 hr 09/04/23 06:02 WBC 12.8 H RBC 3.41 L Hgb 9.0 L Hct 28.4 L MCV 83.3 MCH 26.4 L MCHC 31.7 RDW 15.8 Plt Count 261 MPV 9.9 Absolute Nucleated RBC 0.000 Nucleated RBC % (auto) 0.0 Creatinine 0.73 Estim Creat Clear Calc 123.8 Estimated GFR > 60 Assessment and Plan (1) Tricuspid regurgitation: Status: Acute (2) Active intravenous drug use: Status: Acute (3) Endocarditis: Status: Acute Plan [age] year female who is presenting for lower extremity rash which has been diagnosed as vasculitis. She has background of IV drug use and was using IV cocaine. Previously had staph bacteremia but never had any echocardiography performed before. ECHO showing [id number] tricuspid valve regurgitation and RV dysfunction with a small mobile density on the valve which is either old or new vegetation. By ECHO the vegetation does not look old as there is no calcification or other features but difficult to say. Also her blood cultures are negative but she took antibiotics at home after developing some fevers. Would favor treating her for endocarditis with antibiotics for 4 weeks, I would is already on the case and can advise. I have explained to Charlene that she probably had tricuspid valve damage due to endocarditis in the past and potentially has active infection right now to. I have explained to her that the course of her treatment depends on the choices she is going to make going forward. If she continues to use IV drugs and unfortunately there is no good treatment for her available. She needs to go through rehab and stopped using IV drugs and at that stage she maybe a candidate for valve replacement if required. Currently she does not have any clinical signs of right heart failure. I would set her up to come see us in the office. We will repeat another echocardiogram in few months. I have explained to her about symptoms/signs of right heart failure and she will reach out to us in case any symptoms are developing. Thank you for allowing me to participate in the care of your patient. Please feel free to contact me if you have any questions. Procedures Date of Service Date of Service: 09/04/23
--- NOTE | 2023-09-04 12:26 | HO.PM.IMPN ---
Subjective Subjective Date of Service: 09/04/23 Interval History: seen and examined this morning follow up for vasculitis patient reports significant improvement with pain and swelling in legs she has remained afebrile Review of Systems Review of Systems: Yes all other systems are reviewed and are negative Constitutional Constitutional: Denies chills and Denies fever(s) Cardiovascular Cardiovascular: Denies chest pain and Denies dyspnea Respiratory Respiratory: Denies cough and Denies dyspnea Gastrointestinal Gastrointestinal: Denies abdominal pain Physical Exam Vital Signs: Vital Signs: Last Vital Signs Temp 96.8 F 09/04/23 07:40 Pulse 49 L 09/04/23 07:40 Resp 18 09/04/23 07:40 BP 142/72 H 09/04/23 07:40 Pulse Ox 98 09/04/23 07:40 O2 Del Method Room Air 09/04/23 07:40 BMI result Body Mass Index 31.4 Appearing in no acute distress lung sounds are clear to auscultation heart regular rate rhythm, clear S1, S2 positive bowel sounds, abdomen is soft, nontender neuro patient is alert x3, no focal deficits Objective Data Active Medications Acetaminophen (Acetaminophen 325 Mg Tablet) 650 mg PO Q6H PRN PRN Reason: Pain, Mild (Pain Scale 1-3) Last Admin: 09/02/23 10:03 Dose: 650 mg Documented By: TORSTEN Clonidine HCl (Clonidine Hcl 0.1 Mg Tablet) 0.1 mg PO BID [facility]; Protocol Last Admin: 09/04/23 06:44 Dose: 0.1 mg Documented By: BOOGIE Enoxaparin Sodium (Enoxaparin Sodium 40 Mg/0.4 Ml Syringe) 40 mg SUBCUT Q24H [facility] Last Admin: 09/04/23 10:20 Dose: 40 mg Documented By: RUDDY Cefazolin Sodium/Dextrose (Ancef) 2 gm in 50 mls @ 100 mls/hr IV Q8H [facility] Last Infusion: 09/04/23 11:07 Dose: Infused Documented By: RUDDY Loratadine (Loratadine 10 Mg Tablet) 10 mg PO DAILY [facility] Last Admin: 09/04/23 10:20 Dose: 10 mg Documented By: RUDDY Melatonin (Melatonin 3 Mg Tablet) 6 mg PO BEDTIME PRN PRN Reason: Insomnia Last Admin: 09/02/23 23:27 Dose: 6 mg Documented By: ARI Methadone HCl (Methadone Hcl 20 Mg/2 Ml Oral.Conc) 30 mg PO DAILY [facility] Last Admin: 09/04/23 06:44 Dose: 30 mg Documented By: BOOGIE Morphine Sulfate (Morphine Sulfate 2 Mg/Ml Cartridge) 2 mg IVPUSH Q4H PRN; Protocol PRN Reason: Pain, Severe (Pain Scale 7-10) Nicotine Polacrilex (Nicotine Polacrilex 2 Mg Gum) 2 mg BUCCAL Q2H PRN PRN Reason: Nicotine Cravings Last Admin: 09/02/23 00:59 Dose: 2 mg Documented By: SORIN Ondansetron HCl (Ondansetron Hcl 4 Mg/2 Ml Vial) 4 mg IVPUSH Q8H PRN PRN Reason: Nausea and Vomiting Oxycodone HCl (Oxycodone Hcl Immed Release 5 Mg Tablet) 5 mg PO Q4H PRN PRN Reason: Pain, Moderate(Pain Scale 4-6) Last Admin: 09/03/23 14:47 Dose: 5 mg Documented By: RUDDY Prednisone (Prednisone 20 Mg Tablet) 40 mg PO DAILY [facility] Last Admin: 09/04/23 10:20 Dose: 40 mg Documented By: RUDDY Sodium Chloride (0.9 % Sodium Chloride Flush 3 Ml Syringe) 3 ml IVFLUSH QSHIFT [facility] Last Admin: 09/04/23 10:28 Dose: 3 ml Documented By: RUDDY Triamcinolone Acetonide (Triamcinolone Acet 0.1 % Cream 15 Gm Tube) 1 appl TOPICAL BID [facility]; Protocol Last Admin: 09/04/23 10:28 Dose: Not Given Documented By: RUDDY Non-Admin Reason: Patient Refused Labs 09/04/23 06:02 09/04/23 06:02 Labs: Laboratory Results - last 24 hr 09/04/23 06:02 MCV 83.3 MCH 26.4 L MCHC 31.7 RDW 15.8 Plt Count 261 MPV 9.9 Absolute Nucleated RBC 0.000 Nucleated RBC % (auto) 0.0 Estim Creat Clear Calc 123.8 Estimated GFR > 60 Microbiology Microbiology Results: Microbiology 09/01/23 21:38 Blood Culture - Preliminary Blood - Venous No growth after 48 hours. 09/01/23 21:39 Blood Culture - Preliminary Blood - Venous No growth after 48 hours. Assessment and Plan (1) Active intravenous drug use: Status: Acute (2) Small vessel vasculitis: Status: Acute (3) Tricuspid regurgitation: Status: Acute Plan This is a 33-year-old female with pertinent history of IVDU who presents to the emergency department for evaluation of fever and rash. Bilateral lower extremity painful rash due to small vessel vasculitis pain resolved, rash improving ESR, CRP elevated, hepatitis screen and HIV negative, compliment, JOSE M and ANCA vasculitides pending po prednisone, will need prednisone taper upon discharge outpatient follow up with rheumatology tricuspid valve vegetation echo showing small vegetation on the tricuspid valve and moderate to severe tricuspid regurgitation blood cultures negative at 24 hours - if blood cultures remain negative ?old infection no evidence of heart failure at this time Substance use disorder: seen by addiction medicine, started on methadone, follow QTc Microcytic anemia H/H trending down, but still above transfusion threshold pt reports chronic anemia, but unsure of baseline H/H follow CBC Hypokalemia: resolved with replacement DVT prophylaxis: Lovenox Attending Dr. Lara Full code continue hospital stay for close monitoring of rash in a patient with IVDU, IV antibiotics (as above), which is not possible in a lesser acute setting. Quality Stroke Does the patient have a stroke diagnosis?: No VTE Prior VTE?: No VTE Risk Level:: Medical - moderate - high VTE Device Contraindication: Treatment Not Indicated VTE Drug Contraindication: N/A - Med Ordered
[2023-09-04 12:31] LABS: Vancomycin Random 6.5 mcg/mL (15-20)
--- NOTE | 2023-09-04 13:42 | PM.DS ---
DS: Providers Provider Date of Service: 09/04/23 Date of admission: 09/02/23 00:06 Primary care physician: None Physician Consults: 09/02/23 00:26 Addiction Medicine Routine Consulting Provider: Addiction Covering Reason for consultation: Fentanyl use disorder 09/02/23 07:53 Consult to Infectious Diseases Routine Consulting Provider: [facility] Infectious Disease Reason for consultation: fever, rash, IVDU Has provider been notified: No 09/02/23 09:30 Consult to General Surgery Routine Consulting Provider: Robert Vasquez Reason for consultation: rash eval for vasculitis ?punch biopsy Has provider been notified: Yes 09/03/23 18:21 Consult to Cardiology Routine Consulting Provider: [facility] Cardiovascular Services Reason for consultation: ?endocarditis, abnormal echo Has provider been notified: No 09/04/23 12:24 Consult to Psychiatry Routine Consulting Provider: Psych Covering Reason for consultation: ? hx of bipolar not on mediction, requesting medication DS: Diagnosis Discharge Diagnosis (1) Active intravenous drug use: Status: Acute (2) Small vessel vasculitis: Status: Acute (3) Tricuspid regurgitation: Status: Acute DS: Summary Hospital Course Hospital Course: History and physical as per admitting provider. This is a 33-year-old female with pertinent history of IVDU who presents to the emergency department for evaluation of fever and rash. Patient states she had a fever of about 103 that started about a week prior to presentation. Patient has been taking ibuprofen for it. She continues to be febrile every day. Also has associated headache and intermittent neck stiffness. Patient presents today as she noticed rash in her bilateral lower extremities from or hip to her toes. Also has severe pain and swelling in the lower extremities along with the rash. This started on the day of presentation. No history of similar rash before. Patient states she is unable to ambulate due to pain in her bilateral ankle joints. Endorses pain in bilateral knees and left finger joints. No nausea, vomiting, chest discomfort, palpitations, shortness of breath, changes in urinary bowel habits. No throat ache. Patient last used IV fentanyl on the day of presentation. Patient states she took doxycycline once daily for 4 days prior to coming to the ER today. Patient denies any pertinent medical history and is not on any prescription medications. Of note, patient was seen in January of 2023 for a fever. Blood cultures positive for staph aureus but patient left emergency room AMA. In the emergency department, ESR and CRP found to be elevated. The patient has decided to leave against medical advice. She has normal mental status and adequate capacity to make medical decisions. The patient refuses hospital admission and wants to be discharged. The risks have been explained to the patient including worsening illness, chronic pain, permanent disability and even . The benefits of admission have also been explained including the availability of nurses, medical providers, close monitoring, IV medications, diagnostic imaging, treatments, etc.. The patient was able to understand and state the risks and benefits of hospital admission. The patient was given opportunities to ask questions prior to leaving. Patient being treated for bilateral lower extremity small vessel vasculitis and tricuspid valve vegetation with history of substance abuse. Patient was on IV cefazolin. After discussion with vp product and Infectious Disease provider was thought that patient would require 4 weeks of IV antibiotics. Patient reported that she would not stay in the hospital or go to rehab to receive the antibiotics therefore requested to leave against medical advice. She had JOSE M and [facility] vascular tied pending. She will be treated with prednisone taper for vasculitis and oral Ceftin for endocarditis. Substance abuse disorder. Seen by addiction medicine and patient was started on methadone. Microcytic anemia. H&H above transfusion threshold. Patient reports chronic anemia. Hypokalemia. Resolved with replacement Smoker. Discussed importance of smoking cessation. Declined nicotine replacement therapy Time Attestation Discharge Coordination Time (in mins): 36 Quality: Safe Use of Opioids Does Pt have an Active Cancer Diagnosis on the Problem List?: No Quality: Stroke Does the patient have a stroke diagnosis?: No Physical Exam Vital Signs: Vital Signs: Last Vital Signs Temp 96.8 F 09/04/23 07:40 Pulse 49 L 09/04/23 07:40 Resp 18 09/04/23 07:40 BP 142/72 H 09/04/23 07:40 Pulse Ox 98 09/04/23 07:40 O2 Del Method Room Air 09/04/23 07:40 BMI result Body Mass Index 31.4 Appearing in no acute distress head is normocephalic atraumatic eyes pupils are PERRLA sclera is anicteric mouth throat mucous membranes are intact and moist neck is supple no lymphadenopathy, no JVD noted lung sounds are clear to auscultation heart regular rate rhythm, clear S1, S2 positive bowel sounds, abdomen is soft, nontender neuro patient is alert x3, no focal deficits DS: Data Data Completed and Pending Completed studies during hospitalization [Text1]: Pending at discharge 09/02/23 10:37 Surgical Path [Surgical] [PTH] Routine Labs on day of discharge: Laboratory Results - last 24 hr 09/04/23 09/04/23 06:02 12:05 WBC 12.8 H RBC 3.41 L Hgb 9.0 L Hct 28.4 L MCV 83.3 MCH 26.4 L MCHC 31.7 RDW 15.8 Plt Count 261 MPV 9.9 Absolute Nucleated RBC 0.000 Nucleated RBC % (auto) 0.0 Creatinine 0.73 Estim Creat Clear Calc 123.8 Estimated GFR > 60 Random Vancomycin 6.5 L Preliminary micro results at discharge 09/01/23 21:38 Blood Culture - Preliminary Blood - Venous No growth after 48 hours. 09/01/23 21:39 Blood Culture - Preliminary Blood - Venous No growth after 48 hours. Discharge Plan Discharge Anticipated Discharge Date/Time: 09/04/23 13:19 Patient Disposition: Left Against Medical Advice Discharge Diagnosis: Vasculitis Endocarditis Referrals: Nathaniel Morgan MD [Physician] - 1 Week (Follow up for endocarditis ) Alfredo Craig MD [Physician] - 1 Week (Follow up for vasculitis ) Discharge Medications: New cefuroxime axetil 500 mg tablet 500 mg PO BID 28 Days Qty: 56 0RF prednisone 10 mg tablet See Taper PO DIRECTED Qty: 70 0RF Taper: Prednisone 40 mg daily for 7 Days and 0 Hour 30 mg daily for 7 Days and 0 Hour 20 mg daily for 7 Days and 0 Hour 10 mg daily for 7 Days and 0 Hour Rx Instructions: see taper instructions Discharge Orders: Discharge Order (Routine); Ordered 09/04/23 Ordered By: Krystyna Jasso Diet: Advance to usual diet Activity on Discharge: As tolerated Care Plan Goals: The patient has decided to leave against medical advice. She has normal mental status and adequate capacity to make medical decisions. The patient refuses hospital admission and wants to be discharged. The risks have been explained to the patient including worsening illness, chronic pain, permanent disability and even . The benefits of admission have also been explained including the availability of nurses, medical providers, close monitoring, IV medications, diagnostic imaging, treatments, etc.. The patient was able to understand and state the risks and benefits of hospital admission. The patient was given opportunities to ask questions prior to leaving. Health Concerns: Vasculitis Endocarditis Plan of Treatment: Take antibiotics for endocarditis for 4 weeks. It was explained to patient that she would need to be treated with 4 weeks of IV antibiotics but she has declined. She will be sent home with oral antibiotics that are not the optimal medication for her diagnosis, patient stated understanding of this. Assessment: See discharge summary
--- NOTE | 2023-09-04 16:43 | P.PNADD_ITS ---
Subjective Subjective Date of Service: 09/04/23 Reason For Visit: Fever, ?endocarditis Interim History: Patient seen in follow up earlier in the morning, she was awake, alert, pleasant and engaged in interview. Reports withdrawal sx managed with methadone 30mg. Verbalizing desire to leave, however willing to wait for Cardiology clearance (per her report). Extensive risk reduction discussion, including using new needles and syringes when using, avoiding neck area as an injection site, and considering IN use as a way to work towards reduction and ultimate discontinuation of use --which patient reported was her goal as she wants to address cardiac issues and possible surgery in the future. Discussed ongoing MOUD and she is still undecided, but feels she may want to continue methadone for now with the goal of transitioning to buprenorphine. Review of Systems Constitutional: Reports as per HPI Mental Status Exam Mental Status Exam Patient Appearance: Appropriate Level of Consciousness: Awake and Appropriate Patient Behavior: Appropriate and Talkative Diagnostics Vital Signs (24Hr): Vital Signs - 24 hr 09/03/23 19:40 09/04/23 03:05 09/04/23 07:40 Temperature 96.8 F 97.3 F 96.8 F Pulse Rate 59 46 L 49 L Respiratory Rate 16 16 18 Blood Pressure 115/60 114/57 L 142/72 H Pulse Oximetry 95 98 98 Oxygen Delivery Method Room Air Room Air Room Air BMI result Body Mass Index 31.4 Labs 09/04/23 06:02 09/04/23 06:02 Labs: Laboratory Results - last 48 hr 09/03/23 09/03/23 09/04/23 08:00 08:03 06:02 WBC 9.9 12.8 H RBC 3.28 L 3.41 L Hgb 8.5 L 9.0 L Hct 26.9 L 28.4 L MCV 82.0 83.3 MCH 25.9 L 26.4 L MCHC 31.6 31.7 RDW 15.9 15.8 Plt Count 235 261 MPV 9.1 L 9.9 Absolute Nucleated RBC 0.000 0.000 Nucleated RBC % (auto) 0.0 0.0 PT 14.1 H INR 1.2 H Creatinine 0.80 0.73 Estim Creat Clear Calc 112.9 123.8 Estimated GFR > 60 > 60 Random Vancomycin 20.2 H 09/04/23 12:05 WBC RBC Hgb Hct MCV MCH MCHC RDW Plt Count MPV Absolute Nucleated RBC Nucleated RBC % (auto) PT INR Creatinine Estim Creat Clear Calc Estimated GFR Random Vancomycin 6.5 L Imaging Radiology Impressions: ITS Impressions Chest X-Ray 09/01/23 21:55 IMPRESSION: Unremarkable chest examination. Ankle X-Ray 09/02/23 00:34 IMPRESSION: Mild soft tissue swelling without fracture. Ankle X-Ray 09/02/23 00:34 IMPRESSION: Mild soft tissue swelling without fracture. Medications Allergies Allergies Allergy/AdvReac Type Severity Reaction Status Date / Time latex Allergy Hives Verified 09/03/23 02:05 Sulfa (Sulfonamide Allergy Hives Verified 10/09/21 18:04 Antibiotics) Assessment & Plan Assessment & Plan (1) Opioid use disorder: Status: Acute Code(s): F11.90 - Opioid use, unspecified, uncomplicated Assessment and Plan: * patient unsure if she wanted stay inpatient--discussed plan to come to ED for methadone dose on Wednesday as [facility] is closed due to holiday. patient verbalized understanding * safer injection and harm reduction discussion * at time of this note patient has self initiated discharge, and cardiology note shows recommendation for IV abx, * will follow up with patient via phone to reinforce [facility] admission process Total time managing care of this patient today __35__ minutes.
[2023-09-04 23:23] LABS: Complement C3 125 mg/dL (83-193)
[2023-09-06 08:24] LABS: Anti Nuclear Antibody Screen NEGATIVE (NEGATIVE)
[2023-09-08 07:53] LABS: Myeloperoxidase Antibody <1.0 AI; Proteinase 3 PR3 Antibodies <1.0 AI
--- NOTE | 2023-09-08 09:57 | W.PM.OPN ---
Operative Note Operative Note Date of Service: 09/02/23 Narrative: Procedures Date of Service Date of Service: 09/02/23 Procedure Note Procedure Note: Procedure: Punch biopsy of the skin of the right lower leg Preop diagnosis: Maculopapular rash on both lower extremities Postop diagnosis: The same Surgeon: Robert Vasquez An area with a maculopapular rash on the right lower leg was prepped and draped. Lidocaine 1% was used for local anesthesia. I used a 5 mm biopsy punch to excise skin and subcutaneous tissue. This was sent as a specimen. Dressings were applied. The procedure was completed. She tolerated procedure well. There were no immediate complications. There was no significant bleeding.
== END 2023-09-04 14:24 | disposition left against medical advice (07) | DRG 606 ==
LOC: HO.ED 23:49 → HO.EDOVER 09-02 00:09 → HO.S3 09-02 20:12
PROVIDERS: Physician Assistant Medical; Admitting Provider Student in an Organized Health Care Education/Training Program; Emergency Provider Emergency Medicine; Visit Provider Nurse Practitioner Acute Care
DX: L95.9 Vasculitis limited to the skin, unspecified (principal); I33.0 Acute and subacute infective endocarditis; F11.93 Opioid use, unspecified with withdrawal; F17.210 Nicotine dependence, cigarettes, uncomplicated; I07.1 Rheumatic tricuspid insufficiency; D64.9 Anemia, unspecified; E87.6 Hypokalemia; Z20.822 Contact with and (suspected) exposure to COVID-19; Z71.6 Tobacco abuse counseling; Z91.040 Latex allergy status
CPT/HCPCS: 0241U; 36415; 71045; 73600; 80048; 80076; 80202; 80307; 81001; 82550; 82565; 82803; 83540; 83605; 83735; 83880; 84484; 84702; 85025; 85027; 85610; 85652; 85730; 86021; 86038; 86140; 86160; 86704; 86706; 86709; 86803; 87040; 87340; 87389; 88304; 88305; 88312; 93005; 93306; 99285; J0690; J1170; J1200; J1650; J1885; J2060; J2270; J2543; J3370; J3371

== ENCOUNTER → 2023-09-01 19:38 | Outpatient (BNV) | payer MEDICAID, SELFPAY | PROVIDERS: Admitting Provider Student in an Organized Health Care Education/Training Program; Emergency Provider Emergency Medicine; Visit Provider Internal Medicine Cardiovascular Disease | DX: R41.82 Altered mental status, unspecified (principal); R94.31 Abnormal electrocardiogram [ECG] [EKG] | CPT/HCPCS: 93010 ==

== ENCOUNTER 2023-09-02 00:06 | Outpatient (BNV) | payer MEDICAID, SELFPAY | END 2023-09-03 07:00 | PROVIDERS: Admitting Provider Student in an Organized Health Care Education/Training Program; Emergency Provider Emergency Medicine; Visit Provider Internal Medicine Cardiovascular Disease | DX: I49.9 Cardiac arrhythmia, unspecified (principal) | CPT/HCPCS: 93010; 93306 ==

== ENCOUNTER → 2023-09-02 00:06 | Outpatient (BNV) | payer MEDICAID, SELFPAY | PROVIDERS: Admitting Provider Student in an Organized Health Care Education/Training Program; Emergency Provider Emergency Medicine; Visit Provider Student in an Organized Health Care Education/Training Program | DX: F19.90 Other psychoactive substance use, unspecified, uncomplicated (principal); I77.6 Arteritis, unspecified; I07.1 Rheumatic tricuspid insufficiency | CPT/HCPCS: 99222; 99233; 99239; 99499 ==

== ENCOUNTER → 2023-09-02 00:06 | Outpatient (BNV) | payer MEDICAID, SELFPAY | PROVIDERS: Admitting Provider Student in an Organized Health Care Education/Training Program; Emergency Provider Emergency Medicine; Visit Provider Internal Medicine | DX: F11.90 Opioid use, unspecified, uncomplicated (principal); F19.90 Other psychoactive substance use, unspecified, uncomplicated; R01.1 Cardiac murmur, unspecified; R21 Rash and other nonspecific skin eruption | CPT/HCPCS: 99222; 99232; 99499 ==

== ENCOUNTER → 2023-09-02 00:06 | Outpatient (BNV) | payer MEDICAID, SELFPAY | PROVIDERS: Admitting Provider Student in an Organized Health Care Education/Training Program; Emergency Provider Emergency Medicine; Visit Provider Internal Medicine Cardiovascular Disease | DX: I07.1 Rheumatic tricuspid insufficiency (principal); F19.90 Other psychoactive substance use, unspecified, uncomplicated; I38 Endocarditis, valve unspecified | CPT/HCPCS: 99223 ==

== ENCOUNTER → 2023-09-02 00:06 | Outpatient (BNV) | payer MEDICAID, SELFPAY | PROVIDERS: Admitting Provider Student in an Organized Health Care Education/Training Program; Emergency Provider Emergency Medicine; Visit Provider Surgery | DX: R21 Rash and other nonspecific skin eruption (principal) | CPT/HCPCS: 11104; 99222 ==

== ENCOUNTER → 2023-09-02 00:06 | Outpatient (BNV) | payer MEDICAID, SELFPAY | PROVIDERS: Admitting Provider Student in an Organized Health Care Education/Training Program; Emergency Provider Emergency Medicine; Visit Provider Nurse Practitioner Psychiatric/Mental Health | DX: F11.90 Opioid use, unspecified, uncomplicated (principal) | CPT/HCPCS: 99222; 99232; 99233; 99499; G2213 ==